=== PATIENT | female | born 1970 | race Caucasian/White ===

== ENCOUNTER 2018-07-25 18:58 | Emergency (ER) | payer MEDICARE, MEDICAID, SELFPAY ==
[2018-07-25 18:58] VITALS: BP 117/76; PULSE 76; RESP 16; TEMP 36.9; O2SAT 99; BMI 26.7
--- NOTE | 2018-07-25 19:09 | ED.VISSUMM ---
- ER Visit Summary Date of Service: 07/25/18 Chief Complaint: Nausea, vomiting, abdominal pain History of Present Illness: The patient is a 47 F presents to the emergency department nausea, vomiting, abdominal pain. The patient states she has been having symptoms intermittently for 2 years. Her primary care is referred her to a GI specialist, but she states she is never followed up. She states that there are different foods that seem to exacerbate it. She states that she ate yesterday, and the pain came on. She describes a sharp, stabbing sensation in her midepigastric area to her back. She also had a few bouts of vomiting. She denies any fevers or chills. She had no further diarrhea. She states she tried 1 of her puke pills but it did not help. She has no history of abdominal surgery. Physical Examination: Vital signs reviewed General: Well-nourished, well-developed Head: Normocephalic, atraumatic Eyes: Pupils equal and reactive, extraocular muscles intact Neck, supple, no lymphadenopathy Heart: Regular rate and rhythm Respiratory: No distress, clear bilaterally Abdomen: Soft, nontender, nondistended, no peritoneal signs Back: Nontender Extremities: Nontender, no edema, no cords Skin: Normal color no rash Neuro: Alert and oriented, no focal or lateralizing deficits Test Results: [] Emergency Department Course and Treatment: The patient presents with nausea and vomiting. She has very minimal abdominal tenderness in the midepigastric area, but no rebound or guarding. IV was established. She was given fluids and Phenergan with improvement of her symptoms. Her labs are unremarkable. Her lipase is normal. On reevaluation she is resting comfortably. At this time, I do feel that she is safe for outpatient follow-up. The patient be discharged home. Treatment Plan: [] Disposition: Discharge Impression: Nausea vomiting This note was generated with [employer] dictation software. It may contain incorrect words, spelling, and punctuation that were not noted in review of the chart prior to signing ED Disposition - Plan for ED Patient: Disposition: Home or Assisted Living Chief Complaint: Nausea/Vomiting/Diarrhea Instructions: ED Gastroenteritis Vs Food Poison Prescriptions: Ondansetron [Zofran Odt] 4 mg PO Q8H PRN PRN #10 tab PRN Reason: Nausea Famotidine [Pepcid] 20 mg PO BID #28 tab Referrals: Sheets,Rosanna, DO [Primary Care Provider] -
[2018-07-25] MEDS: proMETHazine 25 MG/ML Syringe 12.5 MG IV (19:41)
[2018-07-25] MEDS: 0.9% Normal Saline 1,000 ML 1000 ML IV (19:41)
[2018-07-25 20:12] LABS: Absolute Lymphocyte Count 2.19 X10^3/ul (0.83-4.51); Absolute Neutrophil Count 3.3 X10^3/uL (2.0-7.7); Basophil# 0.02 X10^3/uL; Basophil% 0.3 % (0-1); Eosinophil# 0.34 X10^3/uL; Eosinophils% 5.6 % (0-5); Hematocrit 40.4 % (37-47); Hemoglobin 12.8 g/dl (12.0-15.0); Lymphocyte # 2.19 X10^3/ul (4.0); Lymphocyte % 35.8 % (19-41); Mean Corp Hgb Conc 31.7 g/gl (32-36); Mean Corpuscular Hgb 27.5 pg (27.0-32.0); Mean Corpuscular Volume 86.9 fL (81-99); Mean Platelet Vol. 10.5 fl (6.2-12.0); Monocyte# 0.26 X10^3/uL; Monocyte% 4.2 % (0-10); Neutrophil % 53.9 % (47-70); Platelet Count 211 K/mm3 (150-450); RBC Distribution Width CV 15.5 % (11.6-14.6); RBC Distribution Width SD 49.1 fl (35.1-43.9); Red Blood Count 4.65 M/mm3 (4.2-5.4); White Blood Count 6.1 K/mm3 (4.4-11.0)
[2018-07-25 20:13] LABS: POSITIVE COUNT NO; POSITIVE DIFFERENTIAL NO; POSITIVE MORPHOLOGY NO
[2018-07-25 20:18] LABS: ALB/GLOB Ratio 0.9 RATIO (0.9-2.4); AST(SGOT) 14 U/L (15-37); Alanine Aminotransfer ALT/SGPT 19 U/L (13-56); Albumin, Serum 3.2 g/dL (3.2-5.0); Alkaline Phosphatase 69 U/L (45-117); Anion Gap 4 (5-15); BUN 9 mg/dL (7-18); BUN/Creat Ratio 12.9 RATIO (10-20); Calcium,Total 8.4 mg/dL (8.5-10.1); Chloride 110 mmol/L (98-107); EST Glomerular Filtration Rate 96 mL/min (>60); Est Glom Filt Rate - Afr Amer 116 mL/min (>60); Estimated Creatinine Clearance 91.32 ml/min; Globulin 3.5 g/dL (2.2-4.2); Glucose 90 mg/dL (74-106); Lipase 138 U/L (73-393); Potassium 3.5 mmol/L (3.5-5.1); Protein, Total 6.7 g/dL (6.4-8.2); Sodium Level 144 mmol/L (136-145)
== END 2018-07-25 20:44 | disposition home or self-care (01) ==
LOC: ED 19:19
PROVIDERS: Emergency Provider Emergency Medicine; Family Provider Family Medicine; PCP Family Medicine
DX: R11.2 Nausea with vomiting, unspecified (principal); R10.13 Epigastric pain; R19.7 Diarrhea, unspecified
CPT/HCPCS: 80053; 83690; 85025; 96361; 96374; 99285; J7030; A4216

== ENCOUNTER → 2019-04-15 | Outpatient (CLI) | payer MEDICARE, MEDICAID, SELFPAY ==
--- NOTE | 2019-04-15 10:18 | RAD_ITS ---
STUDY: X-RAY - LEFT KNEE REASON FOR EXAM: Female, 48 years old. Left knee pain TECHNIQUE: 3 view(s) of the knee. COMPARISON: None. FINDINGS: There is no evidence of fracture or dislocation. There are mild tricompartmental degenerative changes which are most pronounced in the medial compartment. There are no radiodense foreign bodies. RAD/Knee 1 or 2 Views IMPRESSION: No fracture or dislocation. Mild degenerative changes which are most pronounced medially. Electronically Signed: Silvio Osorio, at 17:04 EDT Tel , Service support ,
== END | disposition home or self-care (01) ==
PROVIDERS: Family Provider Family Medicine; PCP Family Medicine; Referring Provider Anesthesiology Pain Medicine; Visit Provider Anesthesiology Pain Medicine
DX: M25.562 Pain in left knee (principal)
CPT/HCPCS: 73560

== ENCOUNTER 2019-04-17 11:27 | Day surgery (SDC) | payer MEDICARE, MEDICAID, SELFPAY ==
--- NOTE | 2019-04-07 13:39 | HP.PCM_ITS ---
History and Physical Date of Admission: 04/17/19 Pre-Op History and Physical ? HPI: The patient is a 48 year old female presenting for pre-operative visit. She is scheduled for?laparoscopic bilateral salpingectomy, for?sterilization on?April 17, 2019. ??Procedure discussed along with risks, benefits and complications. ?Other alternatives discussed for management. Consent form signed??Yes.? PAST?MEDICAL?HISTORY PAST MEDICAL HISTORY Diagnosis Date ? Acquired hypothyroidism ? ? - currently untreated due to patient running out of meds, restart levothyroxine and recheck TSH in 3 months ? Anemia ? ? Anxiety state ? ? ?- continue buspar ? Asthma ? ? Cardiac disorder ? ? Heart spasms treated with NTG sublingual ? Depressive disorder ? ? - Rx for cymbalta ? Diverticular disease of colon ? ? Drug abuse (HCC) ? ? Hx of Heroine Use ? Fibromyalgia ? ? Fracture ? ? rt foot ? Heavy cigarette smoker ? ? - smokes 1/2 PPD, pt encouraged to quit ? Hepatitis B infection ? ? Hypertension 01/17/2012 ? Hypertensive disorder ? ? ?- Lisinopril ? Insomnia ? ? Known medical problems ? ? Solitary nodule of lung- [address] for 5 mm nodule seen on CT in 01/20 ordered, if wnl, repeat in 1 year in this high-risk pt ? Lupus (HCC) ? ? Mixed collagen vascular disease (HCC) ? ? ?- continue to see Dr. Dior, occupational therapy technician, for this condition ? Obesity ? ? - watch diet for excess calories, increase physical activity ? Opioid dependence (HCC) ? ? - under the care of psychiatry ? Slipped intervertebral disc ? ? 3 disc's in Neck ? Spinal stenosis ? ? Neck and Lower Back ? Steatosis of liver ? ? - see on CT of chest done in 02/19, check FLP and LFT, consider starting statin medication? ? ? PAST?SURGICAL?HISTORY PAST SURGICAL HISTORY Procedure Laterality Date ? CARDIAC CATH ? ? ? LOW BACK DISK SURGERY ? 2006 ? PAST SURGICAL HISTORY OF ? ? ? Spurs removed from lower back ? PAST SURGICAL HISTORY OF ? 09/2015 ? cervical disc surgery ? PAST SURGICAL HISTORY OF ? 10/2014 ? lung biopsy (spot on lung) ? REDUCTION OF LARGE BREAST ? ? ? Breast reduction ? ? CURRENT?MEDICATIONS Current Outpatient Medications Medication Sig Dispense Refill ? IBUPROFEN ORAL Take by mouth. ? ? ? Desogestrel-Ethinyl Estradiol (APRI) 0.15-0.03 mg per tablet Take 1 tablet by mouth once daily. (Patient not taking: Reported on 04/07/2019 ) 1 Package 2 ? venlafaxine ER (EFFEXOR XR) 150 mg 24 hr capsule Take 1 capsule by mouth daily with breakfast. (Patient not taking: Reported on 04/07/2019 ) 30 capsule 5 ? promethazine (PHENERGAN) 25 mg tablet Take 1 tablet by mouth every 6 hours as needed. (Patient not taking: Reported on 04/07/2019 ) 30 tablet 0 ? No current facility-administered medications for this visit.? ? ALLERGIES:?Codeine; Lyrica [Pregabalin]; Morphine; Naproxen; Vicodin [Hydrocodone-Acetaminophen] ? PERSONAL HISTORY:? SOCIAL?HISTORY Social History ??Socioeconomic History ?Marital status: Legally ?Spouse name: Marlon ?Number of children: 2 ?Years of education: 12 ?Highest education level: Not on file ??Social Needs ?Financial resource strain: Not on file ?Food insecurity - worry: Not on file ?Food insecurity - inability: Not on file ?Transportation needs - medical: Not on file ?Transportation needs - non-medical: Not on file ??Occupational History ?Occupation: Disabled ??Tobacco Use ?Smoking status: Current Every Day Smoker ?Packs/day: 0.50 ?Years: 33.00 ?Pack years: 16.5 ?Types: Cigarettes ?Start date: 10/08/1980 ?Smokeless tobacco: Never Used ?Tobacco comment: has been trying to cut back ??Substance and Sexual Activity ?Alcohol use: Yes ?Comment: DRANK ONE WEEK AGO/ HAD BEEN SOBER SINCE 12/2014 ?Drug use: Yes ?Frequency: 1.0 times per week ?Types: Marijuana ?Comment: history of marijuana, opiod and heroin use ?Sexual activity: Yes ?Partners: Male ? control/protection: Vasectomy ??Other Topics ?Concerns: ? Service: Not Asked ?Blood Transfusions: Not Asked ?Caffeine Concern: No ?Uses caffeine; Amount: minimal (equiv to <?1 8oz coffee/day) ?Occupational Exposure: Not Asked ?Hobby Hazards: Not Asked ?Sleep Concern: Not Asked ?Stress Concern: Not Asked ?Weight Concern: Not Asked ?Special Diet: Not Asked ?Back Care: Not Asked ?Exercise: Not Asked ?Bike Helmet: Not Asked ?Seat Belt: Not Asked ?Self-Exams: Not Asked ??Social History Narrative ?smoked 1/2 ppd since age 15 ? FAMILY HISTORY:? FAMILY?HISTORY FAMILY HISTORY Problem Relation Age of Onset ? Heart Father ?CHF ? Diabetes Father ?TYPE II ? Hypertension Father ? ? Stroke Father ? ? Diabetes Maternal Grandmother ?TYPE I ? Stroke Maternal Grandmother ? ? other (HTN) Maternal Grandmother ? ? Stroke Maternal Grandfather ? ? Colon Cancer Maternal Aunt ? ? Diabetes Other ?TYPE II ??COUSIN ? Colon Cancer Maternal Aunt ? ? other (Colorectal cancer) Maternal Aunt ? ? other (Diabetes mellitus) Maternal Aunt ? ? other (Heart disease) Maternal Aunt ? ? other (Lung cancer) Maternal Aunt ? ? REVIEW OF SYMPTOMS: GENERAL: denies fevers or chills ENDOCRINOLOGY: has not been on steroids Cardiology : denies palpitations or chest pain Respiratory: denies SOB or cough Hematology: denies history of prolonged bleeding or easy bruising or VTE Allergy: Denies history of personal or family history of allergy to anesthesia ? ? PHYSICAL EXAMINATION: ? VITALS:?There were no vitals taken for this visit. ? GENERAL:??The patient is well nourished, well hydrated in no acute distress. ?, The patient is oriented to time, place, and person. NECK:?Supple. No lynphadenopathy, normal thyroid, no thyromegaly. LUNGS:?Clear to auscultation bilaterally. no wheezes, rhonchi or rales HEART:?Regular rate and rhythm, Normal heart sounds and No murmurs or gallops ? IMPRESSION:?sterilization request ? PLAN:???The risks/benefits/alternatives and personal involved for the planned?laparoscopic bilateral salpingectomy?were reviewed with the patient. Her questions were answered to her satisfaction and she desires to proceed. ?Consent was signed. ?I reviewed with her postop instructions and expectations. ?Risks, benefits and alternatives to sterilization have been discussed with the patient. ?She declines reversible options including LARC. ?She understands sterilization is permanent, irreversible, risks of failure, regret and ectopic. ?In addition she understands there are surgical risks as well. ?Her questions were answered to her satisfaction and consent was signed ? ? I have reviewed and updated past medical and surgical history, medications and allergies? This history and physical was completed in my office on 04/07/19 Diane Whitley M.D.
--- NOTE | 2019-04-15 10:47 | EKGRS_ITS ---
Test Reason : PRE OP Blood Pressure : / mmHG Vent. Rate : 063 BPM Atrial Rate : 063 BPM P-R Int : 142 ms QRS Dur : 090 ms QT Int : 440 ms P-R-T Axes : 063 058 038 degrees QTc Int : 450 ms Normal sinus rhythm Normal ECG Confirmed by OMER MCGEE, NATALY ([id number]), publishing editor DEBRA BROWER ([id number]) on 04/17/2019 11:57:45 AM Referred By: Diane Whitley Confirmed By:NATALY TELLO MD
[2019-04-15 11:26] LABS: Hematocrit 42.4 % (37-47); Hemoglobin 13.5 g/dl (12.0-15.0); Mean Corp Hgb Conc 31.8 g/gl (32-36); Mean Corpuscular Volume 91.2 fL (81-99); Mean Platelet Vol. 10.3 fl (6.2-12.0); Platelet Count 221 K/mm3 (150-450); RBC Distribution Width SD 49.2 fl (35.1-43.9); Red Blood Count 4.65 M/mm3 (4.2-5.4); White Blood Count 6.7 K/mm3 (4.4-11.0)
[2019-04-15 11:43] LABS: Scan Indicated on CBC? Y/N NO
[2019-04-15 13:22] LABS: Internal QC Validated? YES +Cl - CLEAR BKGD; Pregnancy, Urine Negative Negative
[2019-04-17 11:53] LABS: Internal QC Validated? YES +Cl - CLEAR BKGD; Pregnancy, Urine Negative Negative
[2019-04-17 12:12] VITALS: BP 119/83; PULSE 71; RESP 14; TEMP 36.8; O2SAT 99; BMI 26.4
[2019-04-17] MEDS: Acetaminophen 500 MG Tablet 1000 MG PO (12:15)
[2019-04-17] MEDS: Ketorolac 30 MG/ML Syringe IV (12:15)
--- NOTE | 2019-04-17 13:10 | FALS_PTH ---
PATIENT: JOHANNA RUIZ LOC: [facility] [place] U#:[id number] AGE/SX: 48/F ROOM: RE04/17/[address]: Dr. Diane Whitley MD : 1970 BED: DIS: 04/17/2019 SPEC #: [id number] RECD: 04/17/19 16:46 STATUS: YOSELIN LARA #: [id number] YENI: 04/17/19 13:[address]: Diane Whitley DEPT: SURGICAL PATHOLOGY RECD BY: Vangie Lehman ENTERED: 04/18/19 11:32 SP TYPE: FALL TUBES OTHR DR: Dr. Rosanna Alfred, DO Tissues: Fallopian tube Procedures: Surgery Specimen Level II HEADER OPERATION: Laparoscopic, salpingectomy PRE-OP DIAGNOSIS: Request sterilization TISSUE SUBMITTED: Bilateral fallopian tubes MICROSCOPIC DIAGNOSIS Bilateral fallopian tubes, salpingectomy: Bilateral fallopian tubes including fimbrial ends, no pathologic diagnosis. SJ:amanda 04/21/19 MICROSCOPIC DESCRIPTION Slides are reviewed. GROSS DESCRIPTION Received is one container labeled with the patient's name and designated bilateral fallopian tubes. The specimen consists of bilateral fallopian tubes including fimbrial ends each measuring 6 cm in length and 0.7 cm in diameter. Sections do not reveal any mass lesion. The fallopian tubes are not identified as right or left. Sections reveal unremarkable cut surfaces. Toys Inspector sections are submitted in two cassettes with each cassette containing one fallopian tube. / ROSALIND:amanda 04/18/19 TC:4 CPT: 07225 x2
--- NOTE | 2019-04-17 14:08 | PCM.DC.TUB ---
Discharge Diet: No Restrictions - Increase fluid intake for the next 48 hours. Discharge Activity: Return to Normal Activity, May Drive - when you are no longer taking pain/narcotic meds., May Shower, May Take a Tub Bath - in 7 days Additional Activity Instructions:: Ambulate often the next week after surgery. Nothing in the vagina for 5 days. Call your doctor if your incision/area has: Continuous Slow Oozing, Sudden Increased Bleeding, Increased Pain/ Swelling, Increased Redness, Foul Smelling Discharge Call your doctor if you observe: Fever of 101 or Higher, - - use heat or ice packs as needed. Alternate your ibuprofen with acetaminophen 1000 mg three times a day as needed for pain Cleanse incision/area with: Soap & Water, - - Your incisions have skin glue, it can get wet. Leave it on for at least 10 days Allergies/Adverse Reactions: Allergies hydrocodone bitartrate [From Vicodin] Allergy (Verified 04/15/19 10:30) Hives morphine Allergy (Verified 04/15/19 10:30) Itching naproxen Adverse Reaction (Verified 04/15/19 10:30) Other heart palpitations pregabalin [From Lyrica] Adverse Reaction (Verified 04/15/19 10:30) Other heart palpitations Medications to take at Discharge Ibuprofen [Motrin] 600 mg PO Q6H PRN #60 tablet 12/22/16 Multivitamin [Daily Multiple Vitamin] 1 ea PO DAILY 04/15/19 Ibuprofen [Motrin] 600 mg PO Q6H PRN #60 tab 04/17/19 The following prescriptions were given: Ibuprofen [Motrin] 600 mg PO Q6H PRN #60 tab PRN Reason: Pain Transmission Status: Pending to [facility] Primary Care Physician: Rosanna Vann DO [Primary Care Provider] - Test Results: Test results from this visit will be discussed in further detail at your follow-up appointment, if applicable. Please Follow Up With: Diane Whitley MD - [phone] When: in 2-4 weeks or as needed
--- NOTE | 2019-04-17 14:27 | PCM.OPRPT ---
Report of Operation Date of Procedure: 04/17/19 Pre-Operative Diagnosis: sterilization request Post-Operative Diagnosis: same Surgery/Procedure Performed:: Laparoscopic bilateral salpingectomy Description of Surgical Findings:: Normal somewhat boggy uterus, normal tubes and ovaries bilaterally. Normal-appearing vagina and cervix. fuel injection servicer: Eve Ferrer Type of Anesthesia:: General Anesthesiologist: Amita Mckeon Special Medications: None Specimen's removed: Bilateral fallopian tubes Drains: None Estimated Blood Loss (mL): 5 Fluids Replaced: 400 Description of Procedure: The patient was taken to the operating room where she was prepped and draped in the dorsolithotomy position. A weighted speculum was placed in the vagina and the anterior lip of the cervix was grasped with a tenaculum. The con cannula uterine manipulator was placed and the remainder of the instruments were removed from the vagina. Attention was turned to the abdomen. All port sites were infiltrated with 0.5% Marcaine before skin incisions were made. A 5 mm [intraumbilical] incision was made. The anterior abdominal wall was tented up with 2 towel clamps while a 5 mm blade less trocar and sleeve were [directly inserted]. Intraperitoneal placement was confirmed with the laparoscope. The pneumoperitoneum was created and the underlying abdominal contents were intact. The patient was placed in Trendelenburg. Right and left lower quadrant ports were placed under direct visualization lateral to the inferior epigastric vessels. The bowel was swept away and the above findings were noted. The LigaSure device was used to clamp seal and transect the antimesenteric portions of the right tube to the cornual insertion of the uterus. The tube was amputated from the uterus and the pedicles were all confirmed to be hemostatic. The same procedure was performed on the contralateral side. The specimens were brought out through a 5 mm port. The pedicles were again examined and found to be hemostatic. The lateral ports were removed under direct visualization and no active bleeding was noted. The pneumoperitoneum was released. The skin incisions were closed with Monocryl suture in a subcuticular fashion and skin glue by the SENIOR APPLICATION PROGRAMMER with me present in the operating room. The vaginal instruments were removed and the vaginal sweep was completed by me. The procedure was performed by me with assistance other than as dictated above. All sponge and needle counts were correct and the patient was taken to the recovery room in stable condition. Grafts/Implants Used: none - Complications none - Admit VTE Documentation VTE Present on Admission: No VTE Mechan Device Prophylaxis: SCD's VTE Pharm Prophylaxis ordered?: Yes Reason prophylaxis not ordered:: Treatment Not Indicated
[2019-04-17] MEDS: Bupivacaine 0.5% PF 10 ML VIAL (14:30)
[2019-04-17 14:41] VITALS: BP 103/69; BP 119/83; PULSE 71; RESP 18; TEMP 36.1; O2SAT 98
[2019-04-17 14:45] VITALS: BP 106/66; BP 119/83; PULSE 69; RESP 18; O2SAT 98
[2019-04-17 15:00] VITALS: BP 119/83; BP 97/66; PULSE 53; RESP 18; O2SAT 100
[2019-04-17 15:15] VITALS: BP 107/65; BP 119/83; PULSE 69; RESP 18; TEMP 36.4; O2SAT 100
[2019-04-17] MEDS: traMADol 50 MG Tablet PO (15:47)
[2019-04-17 16:09] VITALS: BP 102/60; BP 119/83; PULSE 72; RESP 16; TEMP 36.8; O2SAT 100
== END 2019-04-17 16:10 | disposition home or self-care (01) ==
LOC: SDC 11:28 → AC 11:28
PROVIDERS: Anesthesiology; Family Provider Family Medicine; PCP Family Medicine; Referring Provider Obstetrics & Gynecology; Visit Provider Obstetrics & Gynecology
PROC: (CPT 58661; principal; 2019-04-17 12:55)
DX: Z30.2 Encounter for sterilization (principal); E03.9 Hypothyroidism, unspecified; F41.9 Anxiety disorder, unspecified; F32.9 Major depressive disorder, single episode, unspecified; M79.7 Fibromyalgia; F17.210 Nicotine dependence, cigarettes, uncomplicated; I10 Essential (primary) hypertension; Z86.19 Personal history of other infectious and parasitic diseases; Z79.899 Other long term (current) drug therapy; M32.9 Systemic lupus erythematosus, unspecified; R91.1 Solitary pulmonary nodule; F11.20 Opioid dependence, uncomplicated
CPT/HCPCS: 00840; 58661; 36415; 81025; 85027; 88302; 93005; J7120; J2405

== ENCOUNTER 2019-05-06 13:46 | Emergency (ER) | payer MEDICARE, MEDICAID, SELFPAY ==
[2019-05-06 13:46] VITALS: BP 124/81; PULSE 78; RESP 16; TEMP 36.8; O2SAT 99; BMI 27.2
[2019-05-06 15:58] LABS: Differential Comment SCANNED; Platelet Estimate ADEQUATE (ADEQ)
[2019-05-06 15:59] LABS: Absolute Lymphocyte Count 2.39 X10^3/uL (0.83-4.51); Absolute Neutrophil Count 3.8 X10^3/uL (2.0-7.7); Basophil# 0.04 X10^3/uL; Basophil% 0.6 % (0-1); Eosinophil# 0.18 X10^3/uL; Eosinophils% 2.7 % (0-5); Hemoglobin 14.3 g/dL (12.0-15.0); Lymphocyte # 2.39 X10^3/ul (4.0); Lymphocyte % 35.3 % (19-41); Mean Corp Hgb Conc 32.5 g/dL (32-36); Mean Corpuscular Hgb 30.5 pg (27.0-32.0); Mean Corpuscular Volume 93.8 fL (81-99); Mean Platelet Vol. 10.8 fl (6.2-12.0); Monocyte% 4.4 % (0-10); NRBC Flagged by Analyzer 0 % (0-5); Neutrophil # 3.84 X10^3/uL (2.7-7.7); Neutrophil % 56.6 % (47-70); POSITIVE COUNT YES; Platelet Count 129 K/mm3 (150-450); RBC Distribution Width CV 15.4 % (11.6-14.6); RBC Distribution Width SD 52.9 fl (35.1-43.9); Red Blood Count 4.69 M/mm3 (4.2-5.4); White Blood Count 6.8 K/mm3 (4.4-11.0)
[2019-05-06 16:00] LABS: Differential Indicated SCAN CRITERIA MET
--- NOTE | 2019-05-06 16:32 | ED.DCSUM_ITS ---
- ER Visit Summary Date of Service: 05/06/19 Chief Complaint: [Right shoulder and wrist pain] History of Present Illness: The patient is a 48 F [resents to the emergency department with pain in the right shoulder and right wrist had for about 2 days now. Patient states that she was working in trimming some branches over the last several days. Patient complains of pain in the right shoulder with movement and at times radiates towards her neck. Patient also has some pain in her right wrist especially when she tries to extend or hyperextend her thumb. Patient denies any direct injury or trauma. She does have history of mixed connective tissue disorder. Patient is requesting to have a CBC checked as typically when her white blood cell count is elevated she states that she has to be on steroids. Denies any chest pain or shortness of breath. She is had no fevers.] Physical Examination: [HEENT-PERRLA, EOMI. Cranial nerves II through XII grossly intact. TMs clear. Mucous membranes moist. No adenopathy. Cardiovascular-regular rate and rhythm without murmur or ectopy Lungs-clear to auscultation, chest wall stable without crepitus or subcu emphysema Abdomen-normoactive bowel sounds, soft, nontender, no rebound or rigidity, no peritoneal signs. Extremities-intact ?4, normal range of motion, normal pulses, atraumatic. Right shoulder-no soft tissue swelling noted. There is no erythema or edema. She has normal range of motion. No deformity. He has tenderness over the anterior glenohumeral joint as well as the bicep tendon. Wrist-patient has pain with flexion extension of the wrist mostly over the radial aspect. No erythema or warmth noted. She is neurovascular intact distally. Negative Michael test.] Test Results: [CBC with differential obtained was normal.] Emergency Department Course and Treatment: [He was given a sling and a wrist splint.] Treatment Plan: [Advised to use Percocet for severe pain should she needed. Patient will be referred to orthopedics for follow-up.] Disposition: [Discharged home in stable condition.] Impression: [Right shoulder sprain Right wrist sprain] This note was generated with [employer] software. It may contain incorrect words, spelling, and punctuation that were not noted in review of the chart prior to signing ED Disposition - Plan for ED Patient: Referrals: Rosanna Vann DO [Primary Care Provider] -
--- NOTE | 2019-05-06 16:35 | ED.DEP ---
ED Disposition - Plan for ED Patient: Instructions: Shoulder Sprain, Wrist Sprain Prescriptions: Oxycodone HCl/Acetaminophen [Percocet 5/325] 1 tab PO Q6H PRN PRN 3 Days #12 tab PRN Reason: Pain Prescription Printed Referrals: Rosanna Vann DO [Primary Care Provider] - Jerome Hernandez DO [STAFF PHYSICIAN] - 5-7 Days
[2019-05-06 17:18] VITALS: BP 119/83; PULSE 87; RESP 14; O2SAT 97
== END 2019-05-06 17:19 | disposition home or self-care (01) ==
PROVIDERS: Emergency Provider Emergency Medicine; Family Provider Family Medicine; PCP Family Medicine
DX: S43.401A Unspecified sprain of right shoulder joint, initial encounter (principal); S63.501A Unspecified sprain of right wrist, initial encounter; X58.XXXA Exposure to other specified factors, initial encounter; Y93.9 Activity, unspecified; Y92.9 Unspecified place or not applicable; M35.9 Systemic involvement of connective tissue, unspecified; Z72.0 Tobacco use
CPT/HCPCS: 85025; 99283

== ENCOUNTER → 2019-05-16 | Outpatient (CLI) | payer MEDICARE, MEDICAID, SELFPAY ==
[2019-05-06 13:46] VITALS: BMI 27.2
--- NOTE | 2019-05-16 10:27 | RAD_ITS ---
STUDY: X-RAY - RIGHT HAND REASON FOR EXAM: Female, 48 years old. Pain at the base of the thumb. TECHNIQUE: 3 view(s) of the hand. COMPARISON: None. FINDINGS: Normal radiocarpal articulation. Normal distal radioulnar joint. Normal visualized carpal bones. Normal carpal articulations Normal carpometacarpal articulation of the thumb. Normal second through fifth carpometacarpal joints. Normal metacarpi. Normal metacarpophalangeal joint of the thumb. Normal interphalangeal joint of the thumb. Normal proximal and distal phalanges of the thumb. Normal metacarpophalangeal joints of the second through fifth fingers. Normal proximal and distal interphalangeal joints of the second through fifth fingers. Normal phalanges of the second through fifth fingers. The soft tissue structures are unremarkable. RAD/Hand Min 3 Views IMPRESSION: Normal x-ray examination of the hand. Negative for fracture, dislocation, osteolytic or blastic bone lesion. Minimal diffuse degenerative joint narrowing appropriate for age without other major arthritic or inflammatory joint changes. Electronically Signed: Qing Snider MD at 19:16 EDT , Service support ,
== END | disposition home or self-care (01) ==
LOC: HPRAD 10:27
PROVIDERS: Family Provider Family Medicine; PCP Family Medicine; Referring Provider Physician Assistant; Visit Provider Physician Assistant
DX: M79.644 Pain in right finger(s) (principal)
CPT/HCPCS: 73130

== ENCOUNTER 2020-05-29 18:34 | Emergency (ER) | payer MEDICARE, MEDICAID, SELFPAY ==
[2019-05-16 11:03] VITALS: BMI 27.2
[2020-05-29 18:36] VITALS: BP 126/77; PULSE 88; RESP 16; TEMP 36.4; O2SAT 99; BMI 26.6
--- NOTE | 2020-05-29 18:51 | ED.VIS.GEN ---
History of Present Illness Chief Complaint: General Illness Detail of Chief Complaint: Flare of mixed connective tissue disorder Informant: Patient Onset: Month(s) Context: Gradual Onset Current Severity: Moderate Maximum Severity: Moderate Narrative: Patient presents stating that she is just not feeling good for the past couple of months. She has mixed connective tissue disorder and believes she is having a flare. She states that all of her joints hurt. She also feels intermittently disoriented and confused which happens when she gets a flare. She states she was hoping just to have her levels checked. She states typically they check her white blood cells because she tends to make too many. She has not seen her specialist in the last 2 years. She is been off of her medication for the past 3 years. She does state that when she gets a flare they usually give her an IV dose of steroid and then a prednisone taper. - Past Medical History (1) Hypertension Status: Chronic (2) Hepatitis B Status: Chronic (3) COPD (chronic obstructive pulmonary disease) Status: Chronic (4) Connective tissue disorder Status: Chronic Past Medical History - Allergies and Home Meds Allergies/Adverse Reactions: Allergies gabapentin Allergy (Verified 05/29/20 18:35) Itching hydrocodone bitartrate [From Vicodin] Allergy (Verified 05/29/20 18:35) Hives morphine Allergy (Verified 05/29/20 18:35) Itching naproxen Adverse Reaction (Verified 05/29/20 18:35) Other heart palpitations pregabalin [From Lyrica] Adverse Reaction (Verified 05/29/20 18:35) Other heart palpitations Primary Care Physician: Rosanna Alfred DO [Primary Care Provider] - Prior records reviewed: Yes Lives: Homeless Smoking Status: Current every day smoker Review of Systems General: Denies: Chills, Fever Eyes: Denies: Visual changes - bilaterally ENT: Denies: Bilateral ear pain Cardiovascular: Denies: Chest pain Respiratory: Denies: Dyspnea, Cough Musculoskeletal: Reports: Extremity Pain. Denies: Neck pain, Back pain Skin: Denies: Rash Neurological: Denies: Headache Hematologic: Denies: Easy bruising, Easy bleeding Allergy: Denies: Uticaria Physical Exam Vital Signs/Narrative: Vital Signs Temp Pulse Resp BP Pulse Ox 05/29/20 18:36 97.5 F L 88 16 126/77 H 99 Inital Vital Signs reviewed: Yes General: Well nourished, Well developed Head: Normocephalic ENT: Moist mucous membranes Neck: Supple Cardiovascular: Regular rate, Regular rhythm Respiratory: No distress, CTA bilaterally Abdomen: Soft, Nontender Extremities: Nontender - No focal tenderness of the joints. No erythema or edema. Skin: Normal color Neurological: Alert, Oriented x3, Normal Strength, Normal Sensation Psychological: Normal affect Diagnostic/Tx/Re-eval Laboratory Results 05/29/20 05/29/20 19:15 19:15 WBC 6.4 RBC 4.49 Hgb 13.5 Hct 41.3 MCV 92.0 MCH 30.1 MCHC 32.7 RDW Std Deviation 45.0 H RDW Coeff of Zuly 13.3 Plt Count 211 MPV 10.0 Immature Gran % (Auto) 0.200 Neut % (Auto) 64.4 Lymph % (Auto) 28.1 Mckenzie % (Auto) 4.2 Eos % (Auto) 2.3 Baso % (Auto) 0.8 Absolute Neuts (auto) 4.1 Absolute Lymphs (auto) 1.81 Nucleated RBC % 0 ESR 7 Sodium 141 Potassium 4.4 Chloride 114 H Carbon Dioxide 24.0 Anion Gap 3 L BUN 11 Creatinine 0.65 Estim Creat Clear Calc 96.28 Est GFR (MDRD) Af Amer 125 Est GFR (MDRD) Non-Af 104 BUN/Creatinine Ratio 16.9 Glucose 96 Calcium 8.1 L Total Bilirubin 0.50 Direct Bilirubin 0.11 AST 25 ALT 18 Alkaline Phosphatase 67 C-React Prot Ext Range < 2.90 Total Protein 6.4 Albumin 3.0 L Globulin 3.4 - Medical Decision Making Patient's lab tests are discussed with her. At this time I see no evidence of acute inflammation or infection. She is advised to follow-up with her specialist in [place] whom she is seen in the past. Patient was seen by social work while here as well. ED Disposition - Plan for ED Patient: Disposition: Home or Assisted Living Diagnosis: Joint pain Instructions: ED JOINT PAIN Referrals: Rosanna Alfred DO [Primary Care Provider] - 1-2 Weeks
--- NOTE | 2020-05-29 19:10 | CM.ED ---
SOCIAL WORK Informant: Dr. John Reason for Consult: Resources Met with patient in room. Introduced role and reason for referral. Patient states was for 25 years and got a year ago. Patient states has been homeless for one year. Patient reports is working with [facility] and [facility]. Patient states has to drop off certificates for herself and son to [facility], but has been staying with her cousin in [place] for the last two weeks. Patient states plans to stay with her mother pat. Encouraged patient to follow up with [facility] and [facility] on Sunday. Informed patient this worker will follow up with [facility] on Sunday as well to update on recent ER visit. Patient requests this worker speak with Dannielle at [facility]. Patient with history of anxiety and depression and states does not take medication. Patient with history of substance abuse, heroin and fentanyl and reports has been off substances for 3.[address] John on the above. Plan: Patient to stay with mother and continue to work towards obtaining housing with assistance from [employer]. Angel King, [place], EMERGENCY PREPAREDNESS COORDINATOR
[2020-05-29 19:37] LABS: Absolute Lymphocyte Count 1.81 X10^3/uL (0.83-4.51); Absolute Neutrophil Count 4.1 X10^3/uL (2.0-7.7); Basophil# 0.05 X10^3/uL; Basophil% 0.8 % (0-1); Eosinophil# 0.15 X10^3/uL; Eosinophils% 2.3 % (0-5); Hematocrit 41.3 % (37-47); Hemoglobin 13.5 g/dL (12.0-15.0); Lymphocyte # 1.81 X10^3/ul (4.0); Lymphocyte % 28.1 % (19-41); Mean Corp Hgb Conc 32.7 g/dL (32-36); Mean Corpuscular Hgb 30.1 pg (27.0-32.0); Monocyte# 0.27 X10^3/uL; Monocyte% 4.2 % (0-10); NRBC Flagged by Analyzer 0 % (0-5); Neutrophil # 4.14 X10^3/uL (2.7-7.7); Neutrophil % 64.4 % (47-70); Platelet Count 211 K/mm3 (150-450); RBC Distribution Width CV 13.3 % (11.6-14.6); Red Blood Count 4.49 M/mm3 (4.2-5.4); White Blood Count 6.4 K/mm3 (4.4-11.0)
[2020-05-29 19:40] LABS: Erythrocyte Sedimentation Rate 7 mm/hr (0-20)
[2020-05-29 19:44] LABS: AST(SGOT) 25 U/L (15-37); Alanine Aminotransfer ALT/SGPT 18 U/L (13-56); Alkaline Phosphatase 67 U/L (45-117); Anion Gap 3 (5-15); BUN 11 mg/dL (7-18); BUN/Creat Ratio 16.9 RATIO (10-20); Bilirubin, Direct 0.11 mg/dL (0.00-0.30); CRP < 2.90 mg/L (0.0-3.0); Calcium,Total 8.1 mg/dL (8.5-10.1); Chloride 114 mmol/L (98-107); Creatinine, Serum 0.65 mg/dL (0.55-1.02); EST Glomerular Filtration Rate 104 mL/min (>60); Est Glom Filt Rate - Afr Amer 125 mL/min (>60); Estimated Creatinine Clearance 96.28 ml/min; Globulin 3.4 g/dL (2.2-4.2); Glucose 96 mg/dL (74-106); Potassium 4.4 mmol/L (3.5-5.1); Protein, Total 6.4 g/dL (6.4-8.2); Sodium Level 141 mmol/L (136-145)
== END 2020-05-29 21:14 | disposition home or self-care (01) ==
PROVIDERS: Emergency Provider Emergency Medicine; PCP Family Medicine
DX: L94.9 Localized connective tissue disorder, unspecified (principal); J44.9 Chronic obstructive pulmonary disease, unspecified; F17.200 Nicotine dependence, unspecified, uncomplicated
CPT/HCPCS: 80048; 80076; 85025; 85652; 86140; 99283; A4216

== ENCOUNTER 2021-02-14 08:11 | Emergency (ER) | payer MEDICARE, MEDICAID, SELFPAY ==
[2021-02-14 08:12] VITALS: BP 124/90; PULSE 104; RESP 16; TEMP 36.4; O2SAT 99; BMI 29.9
--- NOTE | 2021-02-14 08:24 | RAD_ITS ---
STUDY: X-RAY - LEFT FOOT CLINICAL: Female, 50 years old. Pain following injury. TECHNIQUE: 3 view(s) of the foot. COMPARISON: None. FINDINGS: There is a plantar calcaneal spur. Normal visualized subtalar, talonavicular, calcaneocuboid, tarsal and tarsometatarsal articulations. Normal metatarsi. There is degenerative arthrosis of the metatarsophalangeal joint of the hallux with a hallux valgus deformity. Normal tibial and fibular sesamoid bones. Normal interphalangeal joint of the great toe. Normal phalanges of the great toe. Normal second through fifth metatarsophalangeal joints. Normal interphalangeal joints and phalanges of the lesser toes. Soft tissue swelling. RAD/Foot min 3 Views IMPRESSION: Hallux valgus deformity with degenerative changes. Soft tissue swelling. Plantar spur. Electronically Signed: Dameon Arora MD at 8:38 EDT , Service support ,
--- NOTE | 2021-02-14 08:42 | ED.VIS.LOWEX ---
HPI History of Present Illness Chief Complaint: Lower Extremity Injury Informant: patient Narrative Narrative: Patient has left foot pain. Is been ongoing for the past week. She states she has a chronic deformity of the first and second toes which is causing her pain. She then hit her first MTP joint area last night on a piece of wood while walking. She states that her dog injured her third toe a week ago and she believes it could be broken. Her pain is worse with walking. She tried ibuprofen without any relief. She denies any history of any surgeries to the foot. The pain radiates up her leg but she denies any ankle injury or tibial injury. [facility] Medical History Depression Fibromyalgia Mixed connective tissue disease Home Medications multivitamin 1 ea PO DAILY 04/15/19 [History Last Taken Unknown] ibuprofen 600 mg PO Q6H PRN #60 tab 04/17/19 [Rx Last Taken Unknown] cannabidiol 1 cap PO DAILY PRN 05/29/20 [History Last Taken Unknown] mecobalamin (vitamin B12) 1,000 mcg PO DAILY 05/29/20 [History Last Taken Unknown] diflunisal 500 mg PO BID #20 tab 02/14/21 [Rx Last Taken Unknown] prednisone 10 mg PO DAILY PRN 02/14/21 [History Last Taken Unknown] Allergy/AdvReac Type Severity Reaction Status Date / Time gabapentin Allergy Itching Verified 02/14/21 08:12 hydrocodone bitartrate Allergy Hives Verified 02/14/21 08:12 [From Vicodin] morphine Allergy Itching Verified 02/14/21 08:12 naproxen AdvReac Other Verified 02/14/21 08:12 pregabalin [From Lyrica] AdvReac Other Verified 02/14/21 08:12 no significant family history Social History Smoking Status: Current every day smoker ROS ROS ED Constitutional Constitutional ED: Denies chills or fever(s) Eyes Eyes: Denies blurry vision, change in vision or diplopia ENT ENT ED: Denies ear pain, rhinorrhea or sore throat Cardiovascular Cardiovascular: Denies chest pain or palpitations Respiratory/Chest Respiratory/Chest: Denies cough, dyspnea or sputum Gastrointestinal Gastrointestinal: Denies abdominal pain, diarrhea, nausea or vomiting Genitourinary Genitourinary ED: Denies dysuria, hematuria or urinary frequency Musculoskeletal Musculoskeletal: Reports other Details: Left foot pain Integumentary Denies change in pigmentation or rash Neurologic Neurologic: Denies headache(s), numbness or weakness Psychiatric Psychiatric: Denies anxiety or depression Endocrine Endocrinology: Denies polydipsia or polyuria EXAM Physical Exam Const Vital Signs: 02/14/21 08:12 Temperature 97.5 F L Temperature Source Temporal Pulse Rate 104 H Respiratory Rate 16 Blood Pressure 124/90 H Blood Pressure Mean 101 Pulse Ox 99 Positive well nourished and well developed General Appearance ED: well developed HEENT normocephalic and atraumatic Eyes PERRL Neck full ROM Extremity Extremity Narrative: There is a chronic bunion deformity of the first MTP joint of the left foot. The second toe sits above the first toe. She has tenderness of the third toe on the left foot. No deformity of the second or third toes. Neuro oriented x3 and moves all extremities Sensorium / Orientation: alert Motor Exam: strength 5/5 throughout Psych mental status grossly normal Skin Lesions: no lesions Rashes: no rashes MDM MDM MDM Narrative Medical decision making narrative: Patient had x-rays of the left foot which shows a chronic hallux deformity. There are no acute fractures. She will be given a postop shoe for comfort. I will give her nonsteroidals for pain control. She will follow up with podiatry Radiography Diagnostic Testing: Radiology Impression Foot X-Ray 02/14/21 08:24 IMPRESSION: Hallux valgus deformity with degenerative changes. Soft tissue swelling. Plantar spur. Electronically Signed: Dameon Arora MD at 8:38 EDT , Service support , Discharge Plan Triage Chief Complaint: Lower Extremity Injury ED Provider: Ming García Dx/Rx/DC Orders Clinical Impression: Acute pain of left foot Instructions: ED Bunion Prescriptions: New diflunisal 500 mg tablet 500 mg PO BID Qty: 20 RF: 0 No Action multivitamin 1 EACH tablet 1 ea PO DAILY RF: 0 ibuprofen 600 MG tablet 600 mg PO Q6H PRN (Reason: Pain) Qty: 60 RF: 1 cannabidiol 100 MG/ML solution 1 cap PO DAILY PRN (Reason: Pain Or Fever) RF: 0 mecobalamin (vitamin B12) 1,000 MCG tablet,chewable 1,000 mcg PO DAILY RF: 0 prednisone 10 mg Tablet 10 mg PO DAILY PRN (Reason: Constipation) RF: 0 Primary Care Provider: Rosanna Alfred Referrals: Cooper Kearns DPM [STAFF PHYSICIAN] - Rosanna Alfred DO [Primary Care Provider] - Disposition Disposition: Home, self care
== END 2021-02-14 08:58 | disposition home or self-care (01) ==
LOC: ED 08:57
PROVIDERS: Emergency Provider Emergency Medicine; PCP Family Medicine
DX: M79.672 Pain in left foot (principal); M21.612 Bunion of left foot; W22.8XXA Striking against or struck by other objects, initial encounter; Y93.01 Activity, walking, marching and hiking; Y92.9 Unspecified place or not applicable; F32.9 Major depressive disorder, single episode, unspecified; M79.7 Fibromyalgia; M35.1 Other overlap syndromes; Z79.899 Other long term (current) drug therapy; F17.200 Nicotine dependence, unspecified, uncomplicated
CPT/HCPCS: 73630; 99283

== ENCOUNTER 2021-04-13 13:04 | Emergency (ER) | payer MEDICARE, MEDICAID, SELFPAY ==
[2021-04-13 13:05] VITALS: BP 117/75; PULSE 79; RESP 14; TEMP 36.3; O2SAT 98; BMI 29.9
[2021-04-13 13:52] LABS: Red Blood Cells-Urine 0 SEEN /hpf (0-5)
[2021-04-13] MEDS: 0.9% Normal Saline 1,000 ML 999 ML IV (13:53)
[2021-04-13 13:55] LABS: Absolute Lymphocyte Count 2.22 X10^3/uL (0.83-4.51); Absolute Neutrophil Count 3.2 X10^3/uL (2.0-7.7); Basophil# 0.06 X10^3/uL; Eosinophil# 0.35 X10^3/uL; Eosinophils% 5.6 % (0-5); Hematocrit 41.6 % (37-47); Hemoglobin 13.5 g/dL (12.0-15.0); Lymphocyte # 2.22 X10^3/ul (0.83-4.51); Lymphocyte % 35.8 % (19-41); Mean Corp Hgb Conc 32.5 g/dL (32-36); Mean Corpuscular Hgb 29.6 pg (27.0-32.0); Mean Corpuscular Volume 91.2 fL (81-99); Mean Platelet Vol. 9.9 fl (6.2-12.0); Monocyte# 0.37 X10^3/uL; NRBC Flagged by Analyzer 0 % (0-5); Neutrophil # 3.19 X10^3/uL (2.7-7.7); Neutrophil % 51.4 % (47-70); Platelet Count 214 K/mm3 (150-450); RBC Distribution Width CV 13.3 % (11.6-14.6); RBC Distribution Width SD 44.8 fl (35.1-43.9); Red Blood Count 4.56 M/mm3 (4.2-5.4); White Blood Count 6.2 K/mm3 (4.4-11.0)
[2021-04-13 14:01] LABS: Color, Urine Yellow (Yellow); Glucose, Dipstick Normal (Normal); Ketone-Dipstick Negative (Negative); Leukocyte Esterase-Dipstick 25 /ul (Negative); Nitrite-Dipstick Negative (Negative); Occult Blood-Urine Negative /ul (Negative); Protein-Dipstick Negative (Negative); Specific Gravity, Urine 1.025 (1.002-1.030); Urine Bilirubin Dipstick Negative (Negative); Urine Clarity Sl. Cloudy (Clear); Urine Urobilinogen Normal (Normal)
[2021-04-13 14:05] LABS: Erythrocyte Sedimentation Rate 5 mm/hr (0-30)
[2021-04-13 14:09] LABS: ALB/GLOB Ratio 0.9 RATIO (0.9-2.4); AST(SGOT) 24 U/L (15-37); Alanine Aminotransfer ALT/SGPT 22 U/L (13-56); Albumin, Serum 2.9 g/dL (3.2-5.0); Alkaline Phosphatase 65 U/L (45-117); Anion Gap 5 (5-15); BUN 15 mg/dL (7-18); Calcium,Total 8.3 mg/dL (8.5-10.1); Chloride 112 mmol/L (98-107); Creatinine, Serum 0.71 mg/dL (0.55-1.02); EST Glomerular Filtration Rate 93 mL/min (>60); Est Glom Filt Rate - Afr Amer 112 mL/min (>60); Estimated Creatinine Clearance 87.19 ml/min; Globulin 3.2 g/dL (2.2-4.2); Glucose 88 mg/dL (74-106); Potassium 4.2 mmol/L (3.5-5.1); Protein, Total 6.1 g/dL (6.4-8.2); Sodium Level 142 mmol/L (136-145)
[2021-04-13 14:09] LABS: Bacteria 1+ /hpf (None Seen); Mucous, Urine 1+ /hpf (<or=2+); Squamous Epithelial Cells - UA 5-10 SEEN /hpf (5-10); White Blood Cells 0-5 SEEN /hpf (0-5)
--- NOTE | 2021-04-13 14:29 | EX.ED.DYSGE1 ---
HPI History of Present Illness Chief Complaint: General Illness Informant: patient Narrative Narrative: 50-year-old female presents the emergency department stating she has a flareup of her connective tissue disorder. She tells me that she has not been to her [employer] consultant for 3 years and is preferring to treat herself naturally. She states that when she has flares she calls her family doctor and gets on prednisone. She states that she has not done that this time. She states that for the past week she has had difficulty walking and difficulty with vision in her right eye. She feels fatigued. She states that sometimes she has a urinary tract infection that will cause this and wonders if that is what is going on today because her urine has been darker than normal [facility] Medical History Depression Fibromyalgia Mixed connective tissue disease Home Medications multivitamin 1 ea PO DAILY 04/15/19 [History Last Taken Unknown] ibuprofen 600 mg PO Q6H PRN #60 tab 04/17/19 [Rx Last Taken Unknown] cannabidiol 1 cap PO DAILY PRN 05/29/20 [History Last Taken Unknown] mecobalamin (vitamin B12) 1,000 mcg PO DAILY 05/29/20 [History Last Taken Unknown] diflunisal 500 mg PO BID #20 tab 02/14/21 [Rx Last Taken Unknown] prednisone 10 mg PO DAILY PRN 02/14/21 [History Last Taken Unknown] prednisone 60 mg PO DAILY #15 tablet 04/13/21 [Rx Last Taken Unknown] Allergy/AdvReac Type Severity Reaction Status Date / Time gabapentin Allergy Itching Verified 02/14/21 08:12 hydrocodone bitartrate Allergy Hives Verified 02/14/21 08:12 [From Vicodin] morphine Allergy Itching Verified 02/14/21 08:12 naproxen AdvReac Other Verified 02/14/21 08:12 pregabalin [From Lyrica] AdvReac Other Verified 02/14/21 08:12 Social History Smoking Status: Current every day smoker tobacco type: cigarettes ROS ROS ED Constitutional Constitutional ED: Denies chills or weight loss Eyes Eyes: Reports change in vision; Denies diplopia ENT ENT ED: Denies ear pain, rhinorrhea or sore throat Cardiovascular Cardiovascular: Denies chest pain, orthopnea, palpitations or racing heartbeat Respiratory/Chest Respiratory/Chest: Denies cough, dyspnea or orthopnea Gastrointestinal Gastrointestinal: Denies abdominal pain, diarrhea, nausea or vomiting Genitourinary Genitourinary ED: Denies dysuria, hematuria or urinary frequency Musculoskeletal Musculoskeletal: Denies arthralgias or myalgias Integumentary Denies abscess or rash Neurologic Neurologic: Reports other Details: Feeling of off balance ; Denies headache(s) or weakness Psychiatric Psychiatric: Denies anxiety, depression, suicidal ideation or suicidal thoughts Endocrine Endocrinology: Denies polydipsia, polyphagia or polyuria Allergic/Immunologic Allergic/Immunologic ED: Denies mouth swelling, tongue swelling or urticaria EXAM Physical Exam Const Vital Signs: 04/13/21 13:05 04/13/21 13:54 Temperature 97.4 F L Temperature Source Temporal Pulse Rate 79 Respiratory Rate 14 Respiratory Effort Normal Respiratory Pattern Normal Blood Pressure 117/75 Blood Pressure Mean 89 Pulse Ox 98 Oxygen Delivery Method Room Air Positive well nourished and well developed General Appearance ED: well developed HEENT Reports normocephalic, head/scalp atraumatic and moist mucous membranes Eyes PERRL and EOMs intact bilaterally Neck no lymphadenopathy, supple and no JVD Resp normal respiratory effort and clear to auscultation bilaterally Cardio regular rate, regular rhythm and no murmurs GI normal to inspection, nondistended, normoactive bowel sounds and non-tender Palpation: soft Back/Spine no CVA tenderness and normal ROM Extremity normal to inspection General Extremety ED: Negative for edema General Extremity: Negative for edema Neuro oriented x3 and CN's II-XII intact bilaterally Sensorium / Orientation: alert Motor Exam: strength 5/5 throughout Psych mental status grossly normal Mood & Affect: Negative for depressed or tearful Skin no rashes or lesions noted and no wounds MDM MDM MDM Narrative Medical decision making narrative: Patient's creatinine and LFTs are normal. Urinalysis shows no obvious infection. Sed rate is 5. Patient will be given a dose of Solu-Medrol and IV fluids. She will be discharged home with burst steroids and have her follow-up with her doctors. Lab Data Attestation: I reviewed the patient's lab results. Labs: Laboratory Results - last 24 hr 04/13/21 04/13/21 04/13/21 13:46 13:47 13:47 WBC 6.2 RBC 4.56 Hgb 13.5 Hct 41.6 MCV 91.2 MCH 29.6 MCHC 32.5 RDW Std Deviation 44.8 H RDW Coeff of Zuly 13.3 Plt Count 214 MPV 9.9 Immature Gran % (Auto) 0.200 Neut % (Auto) 51.4 Lymph % (Auto) 35.8 Andrews % (Auto) 6.0 Eos % (Auto) 5.6 H Baso % (Auto) 1.0 Absolute Neuts (auto) 3.2 Absolute Lymphs (auto) 2.22 Nucleated RBC % 0 ESR 5 Sodium 142 Potassium 4.2 Chloride 112 H Carbon Dioxide 25.0 Anion Gap 5 BUN 15 Creatinine 0.71 Estim Creat Clear Calc 87.19 Est GFR (MDRD) Af Amer 112 Est GFR (MDRD) Non-Af 93 BUN/Creatinine Ratio 21.0 H Glucose 88 Calcium 8.3 L Total Bilirubin 0.30 AST 24 ALT 22 Alkaline Phosphatase 65 Total Protein 6.1 L Albumin 2.9 L Globulin 3.2 Albumin/Globulin Ratio 0.9 Urine Color Yellow Urine Clarity Sl. Cloudy Urine pH 5.0 Ur Specific [place] 1.025 Urine Protein Negative Urine Glucose (UA) Normal Urine Ketones Negative Urine Occult Blood Negative Urine Nitrite Negative Urine Bilirubin Negative Urine Urobilinogen Normal Ur Leukocyte Esterase 25 H Urine RBC 0 SEEN Urine WBC 0-5 SEEN Ur Squamous Epith Cells 5-10 SEEN Urine Bacteria 1+ Urine Mucus 1+ Discharge Plan Triage Chief Complaint: General Illness ED Provider: Yan Wellington Dx/Rx/DC Orders Clinical Impression: Connective tissue disorder Prescriptions: New prednisone 20 MG tablet 60 mg PO DAILY Qty: 15 RF: 0 No Action multivitamin 1 EACH tablet 1 ea PO DAILY RF: 0 ibuprofen 600 MG tablet 600 mg PO Q6H PRN (Reason: Pain) Qty: 60 RF: 1 cannabidiol 100 MG/ML solution 1 cap PO DAILY PRN (Reason: Pain Or Fever) RF: 0 mecobalamin (vitamin B12) 1,000 MCG tablet,chewable 1,000 mcg PO DAILY RF: 0 prednisone 10 mg Tablet 10 mg PO DAILY PRN (Reason: Constipation) RF: 0 diflunisal 500 mg tablet 500 mg PO BID Qty: 20 RF: 0 Primary Care Provider: Rosanna Alfred Referrals: Rosanna Alfred, DO [Primary Care Provider] - As soon as possible Disposition Disposition: Home, Self Care
[2021-04-13] MEDS: MethylPREDNISolone 125 MG/2 ML Vial 60 MG IV (14:46)
[2021-04-13 14:48] VITALS: BP 129/60; PULSE 72; RESP 15; O2SAT 98
== END 2021-04-13 14:51 | disposition home or self-care (01) ==
PROVIDERS: Emergency Provider Emergency Medicine; PCP Family Medicine
DX: M35.1 Other overlap syndromes (principal); F32.9 Major depressive disorder, single episode, unspecified; M79.7 Fibromyalgia; Z87.440 Personal history of urinary (tract) infections; Z79.52 Long term (current) use of systemic steroids; Z79.899 Other long term (current) drug therapy; F17.210 Nicotine dependence, cigarettes, uncomplicated
CPT/HCPCS: 80053; 81001; 85025; 85652; 96361; 96374; 99283

== ENCOUNTER 2021-05-26 20:06 | Emergency (ER) | payer MEDICARE, MEDICAID, SELFPAY ==
[2021-05-26 20:07] VITALS: BP 132/88; PULSE 86; RESP 18; TEMP 36.2; O2SAT 96; BMI 28.3
--- NOTE | 2021-05-26 20:10 | EKG12_ITS ---
Test Reason : CP Blood Pressure : / mmHG Vent. Rate : 081 BPM Atrial Rate : 081 BPM P-R Int : 132 ms QRS Dur : 084 ms QT Int : 390 ms P-R-T Axes : 060 024 045 degrees QTc Int : 453 ms Normal sinus rhythm Normal ECG Confirmed by NARCISO MCGEE, OBED ([id number]), editor index GERBER CHOI ([id number]) on 05/30/2021 1:04:25 PM Referred By: CLAUDIA/SAIMA Confirmed By:OBED STUART MD
--- NOTE | 2021-05-26 20:28 | RAD_ITS ---
STUDY: X-RAY CHEST REASON FOR EXAM: Female, 50 years old. CHEST PAIN TECHNIQUE: Single frontal view of the chest. COMPARISON: None. FINDINGS: The lungs are clear and expanded. There is no demonstrated pleural abnormality. Normal size heart. Normal mediastinum and anabel. Normal visualized pulmonary arteries. Normal visualized aortic arch and descending thoracic aorta. Normal visualized thoracic spine. Normal visualized ribs, clavicles, and shoulders. There is no demonstrated abnormality of the visualized soft tissue structures of the upper abdomen. RAD/Chest 1 View (Portable) IMPRESSION: Normal x-ray examination of the chest. Electronically Signed: Cristi Spencer MD at 21:01 EDT Tel , Service support ,
[2021-05-26 20:29] LABS: Absolute Lymphocyte Count 2.37 X10^3/uL (0.83-4.51); Absolute Neutrophil Count 6.2 X10^3/uL (2.0-7.7); Basophil# 0.05 X10^3/uL; Basophil% 0.5 % (0-1); Eosinophil# 0.26 X10^3/uL; Eosinophils% 2.8 % (0-5); Hematocrit 43.6 % (37-47); Hemoglobin 14.2 g/dL (12.0-15.0); Lymphocyte # 2.37 X10^3/ul (0.83-4.51); Lymphocyte % 25.6 % (19-41); Mean Corp Hgb Conc 32.6 g/dL (32-36); Mean Corpuscular Hgb 29.3 pg (27.0-32.0); Mean Corpuscular Volume 90.1 fL (81-99); Mean Platelet Vol. 9.6 fl (6.2-12.0); Monocyte# 0.34 X10^3/uL; Monocyte% 3.7 % (0-10); NRBC Flagged by Analyzer 0 % (0-5); Neutrophil # 6.17 X10^3/uL (2.7-7.7); Neutrophil % 66.9 % (47-70); Platelet Count 279 K/mm3 (150-450); RBC Distribution Width SD 42.9 fl (35.1-43.9); Red Blood Count 4.84 M/mm3 (4.2-5.4); White Blood Count 9.2 K/mm3 (4.4-11.0)
[2021-05-26 20:49] LABS: Anion Gap 7 (5-15); BUN 13 mg/dL (7-18); BUN/Creat Ratio 20.8 RATIO (10-20); Calcium,Total 8.6 mg/dL (8.5-10.1); Chloride 111 mmol/L (98-107); Creatinine, Serum 0.63 mg/dL (0.55-1.02); EST Glomerular Filtration Rate 108 mL/min (>60); Est Glom Filt Rate - Afr Amer 130 mL/min (>60); Estimated Creatinine Clearance 98.27 ml/min; Glucose 95 mg/dL (74-106); Potassium 4.1 mmol/L (3.5-5.1); Sodium Level 140 mmol/L (136-145); Troponin-I HS 5 pg/mL (3.0-54.0)
--- NOTE | 2021-05-26 21:13 | ED.VIS.CHEST ---
HPI History of Present Illness Chief Complaint: Chest Pain Informant: patient Onset/Context/Timing Onset: Today Activity at onset: sudden Timing: Lasts (Approximately 10-minutes) Quality: Positive for Sharp and Tightness Location: Substernal Current Severity: Gone Maximum Severity: Moderate Narrative Narrative: Patient presents secondary to a 10-minute episode of chest pain that she had prior to arrival. Patient states she was sitting at rest when she developed a tight sharp pain in the substernal area. Symptoms last approximate 10 minutes and then resolved. She states her breathing was heavy during the episode but she did not practically feel short of breath. She denies known history of cardiac disease. She does note increased reflux recently and states she has been taking Tums a lot to control this. [facility] Medical History Depression Fibromyalgia Mixed connective tissue disease Home Medications multivitamin 1 ea PO DAILY 04/15/19 [History Last Taken Unknown] ibuprofen 600 mg PO Q6H PRN #60 tab 04/17/19 [Rx Last Taken Unknown] cannabidiol 1 cap PO DAILY PRN 05/29/20 [History Last Taken Unknown] mecobalamin (vitamin B12) 1,000 mcg PO DAILY 05/29/20 [History Last Taken Unknown] diflunisal 500 mg PO BID #20 tab 02/14/21 [Rx Last Taken Unknown] prednisone 10 mg PO DAILY PRN 02/14/21 [History Last Taken Unknown] prednisone 60 mg PO DAILY #15 tablet 04/13/21 [Rx Last Taken Unknown] omeprazole 20 mg PO DAILY #30 cap 05/26/21 [Rx Last Taken Unknown] Allergy/AdvReac Type Severity Reaction Status Date / Time gabapentin Allergy Itching Verified 05/26/21 20:09 hydrocodone bitartrate Allergy Hives Verified 05/26/21 20:09 [From Vicodin] morphine Allergy Itching Verified 05/26/21 20:09 naproxen AdvReac Other Verified 05/26/21 20:09 pregabalin [From Lyrica] AdvReac Other Verified 05/26/21 20:09 Social History Smoking Status: Current every day smoker tobacco type: cigarettes ROS ROS ED Constitutional Constitutional ED: Denies chills or fever(s) Eyes Eyes: Denies change in vision ENT ENT ED: Denies sore throat Cardiovascular Cardiovascular: Reports chest pain Respiratory/Chest Respiratory/Chest: Denies cough or dyspnea Gastrointestinal Gastrointestinal: Denies abdominal pain, diarrhea, nausea or vomiting Genitourinary Genitourinary ED: Denies dysuria Musculoskeletal Musculoskeletal: Denies back pain Integumentary Denies rash Neurologic Neurologic: Denies headache(s) or weakness Allergic/Immunologic Allergic/Immunologic ED: Denies urticaria EXAM Physical Exam Const Vital Signs: 05/26/21 20:07 05/26/21 21:35 Temperature 97.2 F L Temperature Source Temporal Pulse Rate 86 89 Respiratory Rate 18 19 H Blood Pressure 132/88 H Blood Pressure Mean 102 Pulse Ox 96 99 Oxygen Delivery Method Room Air Positive well nourished and well developed General Appearance ED: well developed HEENT Reports normocephalic and head/scalp atraumatic Eyes PERRL and EOMs intact bilaterally Neck supple Chest Wall inspection of chest normal and palpation of chest normal Resp normal respiratory effort and clear to auscultation bilaterally Cardio regular rate and regular rhythm GI normal to inspection, nondistended, normoactive bowel sounds and soft to palpation GI Narrative: Mild epigastric tenderness. Palpation: soft Extremity normal to inspection Neuro oriented x3 Sensorium / Orientation: alert Psych mental status grossly normal Skin no rashes or lesions noted Heart Score History: Slightly/Non-Suspicious ECG: Normal Age: >45 - <65 years Risk Factors: 1 or 2 Risk Factors Troponin: </= Normal Limit Score: 2 MDM MDM MDM Narrative Medical decision making narrative: Chest pain work-up initiated via nursing protocol. Patient is pain-free at the time of my examination. Lab Data Attestation: I reviewed the patient's lab results. Labs: Laboratory Results - last 24 hr 05/26/21 05/26/21 20:20 20:20 WBC 9.2 RBC 4.84 Hgb 14.2 Hct 43.6 MCV 90.1 MCH 29.3 MCHC 32.6 RDW Std Deviation 42.9 RDW Coeff of Zuly 13.0 Plt Count 279 MPV 9.6 Immature Gran % (Auto) 0.500 Neut % (Auto) 66.9 Lymph % (Auto) 25.6 Boyle % (Auto) 3.7 Eos % (Auto) 2.8 Baso % (Auto) 0.5 Absolute Neuts (auto) 6.2 Absolute Lymphs (auto) 2.37 Nucleated RBC % 0 Sodium 140 Potassium 4.1 Chloride 111 H Carbon Dioxide 22.0 Anion Gap 7 BUN 13 Creatinine 0.63 Estim Creat Clear Calc 98.27 Est GFR (MDRD) Af Amer 130 Est GFR (MDRD) Non-Af 108 BUN/Creatinine Ratio 20.8 H Glucose 95 Calcium 8.6 Troponin I High Sens 5 Radiography Chest X-Ray - ED: 1 View, Read by ED Physician, Normal, Heart, Lungs and Mediastinum Diagnostic Testing: Radiology Impression Chest X-Ray 05/26/21 20:28 IMPRESSION: Normal x-ray examination of the chest. Electronically Signed: Cristi Spencer MD at 21:01 EDT Tel , Service support , EKG Initial EKG: Attestation: I personally reviewed and interpreted this EKG as follows: Interpretation: Sinus Rhythm (Sinus 81 with no acute ischemia.) Treatment and Re-Evaluation Comments:: Test results discussed with patient at bedside. She has had increased reflux recently and is not on any medication for this. She will be discharged with a prescription for Prilosec. Return instructions provided. Discharge Plan Triage Chief Complaint: Chest Pain ED Provider: Oanh John Dx/Rx/DC Orders Clinical Impression: Chest pain Instructions: ED Chest Pain, Noncardiac Prescriptions: New omeprazole 20 mg capsule,delayed release(DR/EC) 20 mg PO DAILY Qty: 30 RF: 0 No Action multivitamin 1 EACH tablet 1 ea PO DAILY RF: 0 ibuprofen 600 MG tablet 600 mg PO Q6H PRN (Reason: Pain) Qty: 60 RF: 1 cannabidiol 100 MG/ML solution 1 cap PO DAILY PRN (Reason: Pain Or Fever) RF: 0 mecobalamin (vitamin B12) 1,000 MCG tablet,chewable 1,000 mcg PO DAILY RF: 0 prednisone 10 mg Tablet 10 mg PO DAILY PRN (Reason: Constipation) RF: 0 diflunisal 500 mg tablet 500 mg PO BID Qty: 20 RF: 0 prednisone 20 MG tablet 60 mg PO DAILY Qty: 15 RF: 0 Primary Care Provider: Rosanna Alfred Referrals: Rosanna Alfred DO [Primary Care Provider] - 1-2 Weeks Disposition Disposition: Home, Self Care Discharge Date/Time: 05/26/21 21:36
[2021-05-26 21:35] VITALS: PULSE 89; RESP 19; O2SAT 99
--- NOTE | 2021-05-26 21:35 | ED.RN ---
pt refused protonix. states she will take some at home. notified
== END 2021-05-26 21:36 | disposition home or self-care (01) ==
LOC: ED 21:25
PROVIDERS: Emergency Provider Emergency Medicine; PCP Family Medicine
DX: R07.89 Other chest pain (principal); F32.9 Major depressive disorder, single episode, unspecified; M79.7 Fibromyalgia; M35.1 Other overlap syndromes; Z79.52 Long term (current) use of systemic steroids; Z79.899 Other long term (current) drug therapy; F17.210 Nicotine dependence, cigarettes, uncomplicated
CPT/HCPCS: 71045; 80048; 84484; 85025; 93005; 99282; A4216

== ENCOUNTER 2021-11-02 16:29 | Emergency (ER) | payer MEDICARE, MEDICAID, SELFPAY ==
[2021-11-02 16:30] VITALS: BP 135/67; PULSE 79; RESP 16; TEMP 36.4; O2SAT 100; BMI 31.6
--- NOTE | 2021-11-02 16:52 | RAD_ITS ---
STUDY: X-RAY - RIGHT HAND REASON FOR EXAM: Female, 51 years old. Hand pain for a while. Increased thumb pain after waking up this morning. TECHNIQUE: 3 view(s) of the hand. COMPARISON: 05/16/2019. FINDINGS: Normal radiocarpal articulation. Normal distal radioulnar joint. There is a stable cyst in the capitellum. Otherwise normal visualized carpal bones. Normal carpal articulations There is minimal degenerative arthrosis of the carpometacarpal (CMC) articulation of the thumb. There are cystic changes at the base of the first metacarpal not appreciated on the previous study. Normal second through fifth carpometacarpal joints. Normal second through fifth metacarpi. Normal metacarpophalangeal joint of the thumb. Normal interphalangeal joint of the thumb. Normal proximal and distal phalanges of the thumb. Normal metacarpophalangeal joints of the second through fifth fingers. Normal proximal and distal interphalangeal joints of the second through fifth fingers. Normal phalanges of the second through fifth fingers. The soft tissue structures are unremarkable. RAD/Hand Min 3 Views IMPRESSION: 1. Cystic changes at the base of the first metacarpal not previously seen. This is possibly due to progressive arthrosis the remainder of the findings are unchanged.. Electronically Signed: Zacarias Hood DO at 17:13 EST ,
--- NOTE | 2021-11-02 17:05 | EX.ED.UPPERE ---
HPI History of Present Illness Chief Complaint: Upper Extremity Injury Detail of Chief Complaint: Pain at the base of the right thumb for the year. Informant: patient Onset/Context/Timing Onset: Month(s) Context: Gradual Onset Timing: Continuous Current Severity: Mild Maximum Severity: Mild Associated Symptoms Associated Symptoms: Negative for Parasthesia, Weakness and Loss of Funtion Narrative Narrative: 51-year-old female [id number]. Has had pain in the basilar right thumb for about a year. Denies any trauma. No known injury. No prior surgery. She has a history of mixed connective tissue disease. Prior similar symptoms: Yes Recent Illness/Hospitalization: No PFSH PFS Medical History Asthma Depression Fibromyalgia Hepatitis Mixed connective tissue disease Home Medications multivitamin 1 ea PO DAILY 04/15/19 [History Last Taken Unknown] ibuprofen 600 mg PO Q6H PRN #60 tab 04/17/19 [Rx Last Taken Unknown] cannabidiol 1 cap PO DAILY PRN 05/29/20 [History Last Taken Unknown] mecobalamin (vitamin B12) 1,000 mcg PO DAILY 05/29/20 [History Last Taken Unknown] diflunisal 500 mg PO BID #20 tab 02/14/21 [Rx Last Taken Unknown] prednisone 10 mg PO DAILY PRN 02/14/21 [History Last Taken Unknown] prednisone 60 mg PO DAILY #15 tablet 04/13/21 [Rx Last Taken Unknown] omeprazole 20 mg PO DAILY #30 cap 05/26/21 [Rx Last Taken Unknown] Allergy/AdvReac Type Severity Reaction Status Date / Time gabapentin Allergy Itching Verified 05/26/21 20:09 hydrocodone bitartrate Allergy Hives Verified 05/26/21 20:09 [From Vicodin] morphine Allergy Itching Verified 05/26/21 20:09 naproxen AdvReac Other Verified 05/26/21 20:09 pregabalin [From Lyrica] AdvReac Other Verified 05/26/21 20:09 Social History Smoking Status: Current every day smoker tobacco type: cigarettes ROS ROS ED ROS Narrative Denies recent illness. Review of Systems ROS Unobtainable: Denies due to encephalopathy Constitutional Constitutional ED: Denies fever(s) Eyes Eyes: Denies change in vision ENT ENT ED: Denies ear pain Cardiovascular Cardiovascular: Denies chest pain Respiratory/Chest Respiratory/Chest: Denies dyspnea Gastrointestinal Gastrointestinal: Denies abdominal pain Genitourinary Genitourinary ED: Denies dysuria Musculoskeletal Musculoskeletal: Denies myalgias Integumentary Denies rash Neurologic Neurologic: Denies headache(s) Psychiatric Psychiatric: Denies depression Endocrine Endocrinology: Denies polyuria Hematologic/Lymphatic Hematologic/Lymphatic: Denies easy bruising Allergic/Immunologic Allergic/Immunologic ED: Denies urticaria EXAM Physical Exam Narrative Exam Narrative: 51-year-old female no acute distress. Sitting upright in a chair. Vital signs stable afebrile. H EENT exam unremarkable atraumatic. Neck nontender. Lungs are clear. Heart regular rhythm no murmur. Abdomen soft nontender. Extremities moves all 4. No rash intact. Right shoulder and elbow have normal range of motion nontender no swelling. Right wrist has normal flexion extension radial and ulnar deviation. Mild swelling. No redness. She has tenderness to the base of the right thumb at the metacarpal carpal joint. And also at the proximal phalanx of the thumb and metacarpal. No form knee. Full range of motion. No cellulitis. No septic joint. Const Vital Signs: 11/02/21 16:30 Temperature 97.6 F L Temperature Source Temporal Pulse Rate 79 Respiratory Rate 16 Blood Pressure 135/67 H Blood Pressure Mean 89 Pulse Ox 100 Oxygen Delivery Method Room Air Positive well nourished and well developed; Negative for obese, cachectic, contractures or unkempt General Appearance ED: well developed and NAD; Negative for unkempt, cachectic or contractures Nutritional Appearance: Negative for cachectic or obese HEENT Reports moist mucous membranes normocephalic and atraumatic; Negative for trauma or tenderness Eyes PERRL and EOMs intact bilaterally Neck full ROM and supple General: Negative for tenderness Chest Wall inspection of chest normal and palpation of chest normal Resp normal respiratory effort and clear to auscultation bilaterally Effort and Inspection: Negative for pain with movement Auscultation: Negative for rales, rhonchi or wheezes Cardio regular rate, regular rhythm, S1 normal heart sound, S2 normal heart sound and no murmurs GI non-tender, non-distended and no masses Auscultation: normoactive bowel sounds Palpation: soft; Negative for tender, guarding or rebound tenderness present Back/Spine no CVA tenderness General Back: Negative for CVA tenderness Cervical Spine: Negative for cervical spine tenderness Thoracic Spine / Upper Back: Negative for thoracic spinal tenderness Lumbar Spine / Lower Back: Negative for lumbar spinal tenderness Extremity normal to inspection and full ROM Extremity Narrative: Tenderness base of right thumb between the metacarpal and normal. Carpal bone. No swelling. No deformity. Normal range of motion. General Extremety ED: Negative for edema or other findings General Extremity: Negative for edema or other findings Neuro oriented x3, moves all extremities, no focal motor deficits and no sensory deficits noted Sensorium / Orientation: alert, oriented to person, oriented to place and oriented to time; Negative for orientation impaired, lethargic or stuporous Psych mental status grossly normal Appearance: Negative for unkempt Attitude: No agitated Mood & Affect: Negative for depressed, anxious or tearful Skin Lesions: no lesions Rashes: no rashes Trauma: no lacerations or abrasions; Negative for abrasion or laceration MDM MDM MDM Narrative Medical decision making narrative: 51-year-old female with chronic right thumb pain. X-ray appears to be secondary to arthritis. There is no fracture or dislocation. Ice and elevate. Tylenol Motrin for pain. Radiography Diagnostic Testing: Right hand x-ray shows no acute abnormality. There is arthritic changes between the thumb metacarpal and the carpal bone. No fracture nor dislocation. Discharge Plan Triage Chief Complaint: Upper Extremity Injury ED Provider: Geovanny Luis Dx/Rx/DC Orders Clinical Impression: Arthritis of carpometacarpal (CMC) joint of right thumb, Connective tissue disorder Instructions: Osteoarthritis Prescriptions: No Action multivitamin 1 EACH tablet 1 ea PO DAILY RF: 0 ibuprofen 600 MG tablet 600 mg PO Q6H PRN (Reason: Pain) Qty: 60 RF: 1 cannabidiol 100 MG/ML solution 1 cap PO DAILY PRN (Reason: Pain Or Fever) RF: 0 mecobalamin (vitamin B12) 1,000 MCG tablet,chewable 1,000 mcg PO DAILY RF: 0 prednisone 10 mg Tablet 10 mg PO DAILY PRN (Reason: Constipation) RF: 0 diflunisal 500 mg tablet 500 mg PO BID Qty: 20 RF: 0 prednisone 20 MG tablet 60 mg PO DAILY Qty: 15 RF: 0 omeprazole 20 mg capsule,delayed release(DR/EC) 20 mg PO DAILY Qty: 30 RF: 0 Primary Care Provider: Rosanna Alfred Referrals: Rosanna Alfred, [Primary Care Provider] - 10-14 Days if not better Activity Restrictions/Additional Instructions: Ice and elevate your thumb to decrease the pain and swelling. Tylenol for pain and Motrin for pain and swelling. If you are already taking steroids do not use the Motrin. Follow-up with your doctor as needed. Disposition Disposition: Home, Self Care
== END 2021-11-02 17:45 | disposition home or self-care (01) ==
PROVIDERS: Emergency Provider Emergency Medicine; PCP Family Medicine; Visit Provider Emergency Medicine
DX: M19.041 Primary osteoarthritis, right hand (principal); M35.9 Systemic involvement of connective tissue, unspecified; F17.210 Nicotine dependence, cigarettes, uncomplicated; F32.A Depression, unspecified; M79.7 Fibromyalgia; J45.909 Unspecified asthma, uncomplicated; Z79.899 Other long term (current) drug therapy
CPT/HCPCS: 73130; 99282

== ENCOUNTER 2022-05-19 13:54 | Emergency (ER) | payer MEDICARE, MEDICAID, SELFPAY ==
[2022-05-19 13:55] VITALS: BP 131/88; PULSE 71; RESP 16; TEMP 37; O2SAT 97; BMI 29.9
[2022-05-19 14:00] VITALS: BP 130/88; PULSE 80
--- NOTE | 2022-05-19 15:02 | CT_ITS ---
EXAMINATION : Head CT w/out contrast HISTORY : confusion weakness COMPARISON : None. TECHNIQUE : Multiple contiguous axial images were obtained from the skull base to the vertex without intravenous contrast. A radiation dose optimization technique was used for this scan. FINDINGS : The ventricles and sulci are normal in size. There is no evidence for acute intracranial hemorrhage, mass effect, or midline shift. There is no extra-axial fluid collection. There is normal crowley-white differentiation, without CT evidence of acute ischemia or infarct. The skull base and calvarium are unremarkable. The orbits are unremarkable. The paranasal sinuses are clear. The mastoid air cells are well-aerated. The soft tissues are unremarkable. CT/Brain/Head without Contrast IMPRESSION: No acute intracranial abnormality. Electronically Signed: Link Montiel MD at 16:24 EDT ,
--- NOTE | 2022-05-19 15:12 | EDS_ITS ---
HPI History of Present Illness Chief Complaint: Confusion Detail of Chief Complaint: [email or web address] Informant: patient Narrative Narrative: Patient states she is having a flare of her mixed connective tissue disorder. For the last 2 weeks she is just felt a little confused and slow. She has had achy joints. Her energy level is been a little low. These are her typical symptoms. She did wake up last weekend and had a few seconds where she could not move and this scared her. But has not repeated. She also complains of some ringing in her ears and a congested feeling in her ears. She was seen for this and was told ears look normal. She is currently not on steroids and has not been. But these have helped her symptoms. No coughing or trouble breathing. Nothing makes the symptoms better or worse. She does admit she is under quite a bit of stress and this would be a normal trigger for her. [facility] Medical History Asthma Depression Fibromyalgia Hepatitis Mixed connective tissue disease Home Medications multivitamin 1 ea PO DAILY 04/15/19 [History Last Taken Unknown] ibuprofen 600 mg tablet 600 mg PO Q6H PRN Pain #60 tabs 04/17/19 [Rx Last Taken Unknown] cannabidiol 100 mg/mL oral solution 1 cap PO DAILY PRN Pain Or Fever 05/29/20 [History Last Taken Unknown] mecobalamin (vitamin B12) 1,000 mcg chewable tablet 1,000 mcg PO DAILY 05/29/20 [History Last Taken Unknown] diflunisal 500 mg tablet 500 mg PO BID #20 tabs 02/14/21 [Rx Last Taken Unknown] prednisone 10 mg tablet 10 mg PO DAILY PRN Constipation 02/14/21 [History Last Taken Unknown] prednisone 20 mg tablet 60 mg PO DAILY #15 TABLETS 04/13/21 [Rx Last Taken Unknown] omeprazole 20 mg capsule,delayed release 20 mg PO DAILY #30 caps 05/26/21 [Rx Last Taken Unknown] Allergy/AdvReac Type Severity Reaction Status Date / Time gabapentin Allergy Itching Verified 05/19/22 13:57 hydrocodone bitartrate Allergy Hives Verified 05/19/22 13:57 [From Vicodin] morphine Allergy Itching Verified 05/19/22 13:57 naproxen AdvReac Other Verified 05/19/22 13:57 pregabalin [From Lyrica] AdvReac Other Verified 05/19/22 13:57 Social History Smoking Status: Current every day smoker tobacco type: cigarettes ROS ROS ED Constitutional Constitutional ED: Denies chills, fever(s) or sweats Eyes Eyes: Denies blurry vision, change in vision or diplopia ENT ENT ED: Reports ear pain; Denies rhinorrhea or sore throat Cardiovascular Cardiovascular: Denies chest pain or palpitations Respiratory/Chest Respiratory/Chest: Denies cough or dyspnea Gastrointestinal Gastrointestinal: Denies abdominal pain, nausea or vomiting Genitourinary Genitourinary ED: Denies dysuria Musculoskeletal Musculoskeletal: Reports arthralgias; Denies neck pain Integumentary Denies rash Neurologic Neurologic: Reports weakness; Denies headache(s) Psychiatric Psychiatric: Reports anxiety Endocrine Endocrinology: Denies polydipsia or polyuria Hematologic/Lymphatic Hematologic/Lymphatic: Denies easy bleeding or easy bruising Allergic/Immunologic Allergic/Immunologic ED: Denies urticaria EXAM Physical Exam Const Vital Signs: 05/19/22 13:55 Temperature 98.6 F Temperature Source Temporal Pulse Rate 71 Respiratory Rate 16 Blood Pressure 131/88 H Blood Pressure Mean 102 Pulse Ox 97 Oxygen Delivery Method Room Air Positive well nourished and well developed; Negative for unkempt General Appearance ED: well developed and NAD; Negative for unkempt, cyanotic or diaphoretic HEENT Reports moist mucous membranes HEENT Narrative: Both tympanic membranes look clear. No canal inflammation or swelling Eyes PERRL and EOMs intact bilaterally Neck no lymphadenopathy and no JVD Neck Narrative: No meningismus Chest Wall inspection of chest normal Resp normal respiratory effort and clear to auscultation bilaterally Cardio regular rate and regular rhythm GI normal to inspection, nondistended, normoactive bowel sounds and non-tender Palpation: soft Back/Spine no CVA tenderness Extremity normal to inspection Extremity Narrative: No specifically inflamed joints that I note. General Extremety ED: Negative for edema or tenderness General Extremity: Negative for edema Neuro oriented x3 Psych Appearance: Negative for unkempt Skin no rashes or lesions noted MDM MDM MDM Narrative Medical decision making narrative: Patient's CBC is normal. Electrolytes are normal other give minimal elevation of chloride at 112. Liver function test are normal. CT shows no acute process. Patient states that she initially felt improvement with IV steroids when they were first injected. She states now she is not so sure. I explained that steroids is usually take hours to days to kick in. Her exam is normal. Her vitals are normal. Her labs and CT are normal. She has had symptoms for 2 weeks. I think she is safe for discharge. She will follow-up with patient reports her physician up in [place]. We discussed reasons to return. These would include worsening symptoms, fever, headache or neck pain, neurologic deficits or other concerns. Lab Data Attestation: I reviewed the patient's lab results. Labs: Laboratory Results - last 24 hr 05/19/22 05/19/22 15:35 15:35 WBC 5.6 RBC 4.62 Hgb 14.3 Hct 42.8 MCV 92.6 MCH 31.0 MCHC 33.4 RDW Std Deviation 43.7 RDW Coeff of Zuly 12.8 Plt Count 231 MPV 10.3 Immature Gran % (Auto) 0.200 Neut % (Auto) 59.2 Lymph % (Auto) 32.0 Randall % (Auto) 3.4 Eos % (Auto) 4.5 Baso % (Auto) 0.7 Absolute Neuts (auto) 3.3 Absolute Lymphs (auto) 1.79 Nucleated RBC % 0 Sodium 142 Potassium 4.0 Chloride 112 H Carbon Dioxide 27.0 Anion Gap 3 L BUN 9 Creatinine 0.62 Estim Creat Clear Calc 98.77 Est GFR (MDRD) Af Amer 132 Est GFR (MDRD) Non-Af 109 BUN/Creatinine Ratio 14.5 Glucose 89 Calcium 8.6 Total Bilirubin 0.70 AST 22 ALT 21 Alkaline Phosphatase 59 Total Protein 6.7 Albumin 3.3 Globulin 3.4 Albumin/Globulin Ratio 1.0 Radiography Diagnostic Testing: Clinical Impression(s) from Imaging Studies Brain CT 05/19/22 15:02 IMPRESSION: No acute intracranial abnormality. Electronically Signed: Link Montiel MD at 16:24 EDT , Discharge Plan Triage Chief Complaint: Confusion ED Provider: George Perez Dx/Rx/DC Orders Clinical Impression: H/O mixed connective tissue disease Instructions: ED Arthralgia Prescriptions: No Action multivitamin 1 EACH tablet 1 ea PO DAILY ibuprofen 600 MG tablet 600 mg PO Q6H PRN (Reason: Pain) Qty: 60 1RF cannabidiol 100 MG/ML solution 1 cap PO DAILY PRN (Reason: Pain Or Fever) mecobalamin (vitamin B12) 1,000 MCG tablet,chewable 1,000 mcg PO DAILY prednisone 10 mg Tablet 10 mg PO DAILY PRN (Reason: Constipation) diflunisal 500 mg tablet 500 mg PO BID Qty: 20 0RF prednisone 20 MG tablet 60 mg PO DAILY Qty: 15 0RF omeprazole 20 mg capsule,delayed release(DR/EC) 20 mg PO DAILY Qty: 30 0RF Primary Care Provider: Rosanna Alfred Referrals: Rosanna Alfred DO [Primary Care Provider] - 3-5 Days Disposition Disposition: Home, Self Care
[2022-05-19] MEDS: MethylPREDNISolone 125 MG/2 ML Vial IV (15:36)
[2022-05-19] MEDS: 0.9% Normal Saline 1,000 ML 1000 ML IV (15:36)
[2022-05-19 15:46] LABS: Absolute Lymphocyte Count 1.79 X10^3/uL (0.83-4.51); Absolute Neutrophil Count 3.3 X10^3/uL (2.0-7.7); Basophil# 0.04 X10^3/uL; Basophil% 0.7 % (0-1); Eosinophil# 0.25 X10^3/uL; Eosinophils% 4.5 % (0-5); Hematocrit 42.8 % (37-47); Hemoglobin 14.3 g/dL (12.0-15.0); Lymphocyte # 1.79 X10^3/ul (0.83-4.51); Mean Corp Hgb Conc 33.4 g/dL (32-36); Mean Corpuscular Volume 92.6 fL (81-99); Mean Platelet Vol. 10.3 fl (6.2-12.0); Monocyte# 0.19 X10^3/uL; Monocyte% 3.4 % (0-10); NRBC Flagged by Analyzer 0 % (0-5); Neutrophil # 3.32 X10^3/uL (2.7-7.7); Neutrophil % 59.2 % (47-70); Platelet Count 231 K/mm3 (150-450); RBC Distribution Width CV 12.8 % (11.6-14.6); RBC Distribution Width SD 43.7 fl (35.1-43.9); Red Blood Count 4.62 M/mm3 (4.2-5.4); White Blood Count 5.6 K/mm3 (4.4-11.0)
[2022-05-19 16:00] VITALS: BP 127/86; PULSE 70
[2022-05-19 16:10] LABS: AST(SGOT) 22 U/L (15-37); Alanine Aminotransfer ALT/SGPT 21 U/L (13-56); Albumin, Serum 3.3 g/dL (3.2-5.0); Alkaline Phosphatase 59 U/L (45-117); Anion Gap 3 (5-15); BUN 9 mg/dL (7-18); BUN/Creat Ratio 14.5 RATIO (10-20); Calcium,Total 8.6 mg/dL (8.5-10.1); Chloride 112 mmol/L (98-107); Creatinine, Serum 0.62 mg/dL (0.55-1.02); EST Glomerular Filtration Rate 109 mL/min (>60); Est Glom Filt Rate - Afr Amer 132 mL/min (>60); Estimated Creatinine Clearance 98.77 ml/min; Globulin 3.4 g/dL (2.2-4.2); Glucose 89 mg/dL (74-106); Protein, Total 6.7 g/dL (6.4-8.2); Sodium Level 142 mmol/L (136-145)
[2022-05-19] MEDS: Ibuprofen 600 MG Tablet PO (16:27)
[2022-05-19 16:38] VITALS: BP 127/85; PULSE 67; RESP 18; O2SAT 97
== END 2022-05-19 16:42 | disposition home or self-care (01) ==
PROVIDERS: Emergency Provider Emergency Medicine; PCP Family Medicine; Visit Provider Emergency Medicine
DX: M35.9 Systemic involvement of connective tissue, unspecified (principal); F17.210 Nicotine dependence, cigarettes, uncomplicated; F32.A Depression, unspecified; J45.909 Unspecified asthma, uncomplicated; M79.7 Fibromyalgia; Z79.899 Other long term (current) drug therapy; Z79.52 Long term (current) use of systemic steroids
CPT/HCPCS: 70450; 80053; 85025; 87428; 96361; 96374; 99283; J7030; A4216

== ENCOUNTER 2024-04-23 14:08 | Emergency (ER) | payer MEDICARE, MEDICAID, SELFPAY ==
[2024-04-23 14:09] VITALS: PULSE 74; RESP 22; TEMP 35.9; O2SAT 100; BMI 27.4
[2024-04-23 14:13] VITALS: BP 126/88
--- NOTE | 2024-04-23 14:30 | EKG12_ITS ---
Test Reason : MEDICAL CLEARANCE Blood Pressure : / mmHG Vent. Rate : 051 BPM Atrial Rate : 051 BPM P-R Int : 150 ms QRS Dur : 100 ms QT Int : 478 ms P-R-T Axes : 062 059 048 degrees QTc Int : 440 ms Sinus bradycardia with sinus arrhythmia Otherwise normal ECG Confirmed by NARCISO MCGEE, OBED ([id number]), assistant film editor LEONOR GAMING ([id number]) on 04/24/2024 1:00:01 PM Referred By: Confirmed By:OBED STUART MD
[2024-04-23 15:00] LABS: Absolute Lymphocyte Count 2.45 X10^3/uL (0.83-4.51); Absolute Neutrophil Count 2.7 X10^3/uL (2.0-7.7); Basophil# 0.05 X10^3/uL; Basophil% 0.8 % (0-1); Eosinophil# 0.51 X10^3/uL; Eosinophils% 8.5 % (0-5); Hematocrit 43.6 % (37-47); Hemoglobin 14.5 g/dL (12.0-15.0); Lymphocyte # 2.45 X10^3/ul (0.83-4.51); Lymphocyte % 40.9 % (19-41); Mean Corp Hgb Conc 33.3 g/dL (32-36); Mean Corpuscular Hgb 28.8 pg (27.0-32.0); Mean Corpuscular Volume 86.5 fL (81-99); Mean Platelet Vol. 9.8 fl (6.2-12.0); Monocyte# 0.26 X10^3/uL; Monocyte% 4.3 % (0-10); NRBC Flagged by Analyzer 0 % (0-5); Neutrophil % 45.2 % (47-70); Platelet Count 220 K/mm3 (150-450); RBC Distribution Width CV 13.4 % (11.6-14.6); RBC Distribution Width SD 42.4 fl (35.1-43.9); Red Blood Count 5.04 M/mm3 (4.2-5.4)
[2024-04-23 15:08] VITALS: BP 148/69; PULSE 66; RESP 18; O2SAT 99
[2024-04-23 15:44] LABS: ALB/GLOB Ratio 0.9 RATIO (0.9-2.4); AST(SGOT) 23 U/L (15-37); Alanine Aminotransfer ALT/SGPT 20 U/L (13-56); Albumin, Serum 3.4 g/dL (3.2-5.0); Alkaline Phosphatase 91 U/L (45-117); Anion Gap 5 (5-15); BUN 12 mg/dL (7-18); BUN/Creat Ratio 18.3 RATIO (10-20); Calcium,Total 8.7 mg/dL (8.5-10.1); Chloride 112 mmol/L (98-107); Creatinine, Serum 0.66 mg/dL (0.55-1.02); EST Glomerular Filtration Rate 101 mL/min (>60); Est Glom Filt Rate - Afr Amer 122 mL/min (>60); Estimated Creatinine Clearance 102.08 ml/min; Globulin 3.7 g/dL (2.2-4.2); Glucose 88 mg/dL (74-106); Potassium 3.6 mmol/L (3.5-5.1); Protein, Total 7.1 g/dL (6.4-8.2); Sodium Level 141 mmol/L (136-145)
[2024-04-23 16:00] VITALS: BP 139/75; PULSE 61; RESP 17; O2SAT 99
--- NOTE | 2024-04-23 16:06 | EX.ED.VIS.PS ---
HPI HPI - Psych History of Present Illness Chief Complaint: Suicidal Informant: patient Narrative Narrative: Patient is a 53-year-old female with history of depression, connective tissue disorder, COPD and prior suicide attempts presenting for worsening depression and concern for suicidal ideation. Daughter was concerned that patient overdosed. Patient denies any overdose. When asked why she is concerned about overdose patient states is because she is a history of overdose. Patient denies taking anything. She notes that she has not taken her medications for the past 2 days. She notes that she recently had a medication change that was from the mood stabilizer. She does not the name of it. She denies any alcohol or drug use. She does report increased stress and thoughts of killing herself but has not attempted. She states that she did she would probably just overdose. [facility] Medical History Hepatitis Asthma Fibromyalgia Mixed connective tissue disease Depression Home Medications ?Medication ?Instructions ?Recorded ?Last Taken ?Type multivitamin 1 ea PO DAILY 04/15/19 Unknown History cannabidiol 100 mg/mL oral solution 1 cap PO DAILY PRN Pain Or Fever 05/29/20 Unknown History mecobalamin (vitamin B12) 1,000 1,000 mcg PO DAILY 05/29/20 Unknown History mcg chewable tablet diflunisal 500 mg tablet 500 mg PO BID #20 tabs 02/14/21 Unknown Rx prednisone 10 mg tablet 10 mg PO DAILY PRN Constipation 02/14/21 Unknown History buspirone 5 mg tablet 5 mg PO DAILY 04/23/24 Unknown History diazepam 5 mg tablet 5 mg PO Q6H PRN PRN anxiety 04/23/24 Unknown History Allergy/AdvReac Type Severity Reaction Status Date / Time gabapentin Allergy Itching Verified 05/19/22 13:57 hydrocodone bitartrate (From Allergy Hives Verified 05/19/22 13:57 Vicodin) morphine Allergy Itching Verified 05/19/22 13:57 naproxen AdvReac Other Verified 05/19/22 13:57 pregabalin (From Lyrica) AdvReac Other Verified 05/19/22 13:57 Social History Smoking Status: Current every day smoker tobacco type: cigarettes ROS ROS ED Constitutional Constitutional ED: Reports other Details: Generalized malaise and fatigue ; Denies chills or fever(s) Eyes Eyes: Denies change in vision Gastrointestinal Gastrointestinal: Denies abdominal pain Musculoskeletal Musculoskeletal: Reports arthralgias Integumentary Denies rash Neurologic Neurologic: Reports headache(s) Psychiatric Psychiatric: Reports anxiety, depression, suicidal ideation and suicidal thoughts Hematologic/Lymphatic Hematologic/Lymphatic: Denies easy bleeding or easy bruising EXAM Physical Exam Const Vital Signs: 04/23/24 14:09 04/23/24 14:13 04/23/24 15:08 Temperature 96.7 F L Temperature Source Temporal Pulse Rate 74 66 Respiratory Rate 22 H 18 Blood Pressure 126/88 H 148/69 H Blood Pressure Mean 100 95 Pulse Ox 100 99 Oxygen Delivery Method Room Air Room Air 04/23/24 16:00 04/23/24 17:00 Temperature Temperature Source Pulse Rate 61 81 Respiratory Rate 17 16 Blood Pressure 139/75 H 117/69 Blood Pressure Mean 96 85 Pulse Ox 99 Oxygen Delivery Method Positive well nourished and well developed General Appearance ED: well developed and NAD HEENT Reports moist mucous membranes Neck supple Resp normal respiratory effort and clear to auscultation bilaterally Cardio Rate: regular rate Rhythm: regular rhythm GI non-tender and non-distended Extremity normal to inspection Extremity Narrative: Chronic deformity of the left second toe Neuro oriented x3 Sensorium / Orientation: alert Motor Exam: muscle tone normal throughout; Negative for general weakness Psych thought process normal and cooperative Psych Narrative: Slightly sleepy but answers all questions appropriately. Insightful. Does report depression with suicidal ideation and feels that she is at the point that she might attempt suicide Memory / Cognition: memory grossly intact Insight: fair Judgement: fair Skin Lesions: no lesions Rashes: no rashes MDM MDM MDM Narrative Medical decision making narrative: Patient is evaluated for worsening depression/suicidal ideation. Medical workup including CBC, CMP, Tylenol and aspirin levels as well as alcohol and urine tox is obtained. Patient be medically cleared and evaluated by crisis for potential psychiatric placement. Patient was signed out to oncoming physician pending final disposition. Patient has been calm and cooperative in the ER. Urine tox is positive for benzodiazepines (she has a prescription for this), cannabis and amphetamines. Will add on a CPK level. Otherwise patient is medically cleared. Lab Data Attestation: I reviewed the patient's lab results. Labs: Laboratory Results - last 24 hr 04/23/24 04/23/24 14:47 16:43 WBC 6.0 RBC 5.04 Hgb 14.5 Hct 43.6 MCV 86.5 MCH 28.8 MCHC 33.3 RDW Std Deviation 42.4 RDW Coeff of Zuly 13.4 Plt Count 220 MPV 9.8 Immature Gran % (Auto) 0.300 Neut % (Auto) 45.2 L Lymph % (Auto) 40.9 [place] % (Auto) 4.3 Eos % (Auto) 8.5 H Baso % (Auto) 0.8 Absolute Neuts (auto) 2.7 Absolute Lymphs (auto) 2.45 Nucleated RBC % 0 Sodium 141 Potassium 3.6 Chloride 112 H Carbon Dioxide 24.0 Anion Gap 5 BUN 12 Creatinine 0.66 Estim Creat Clear Calc 102.08 Est GFR (MDRD) Af Amer 122 Est GFR (MDRD) Non-Af 101 BUN/Creatinine Ratio 18.3 Glucose 88 Calcium 8.7 Total Bilirubin 0.60 AST 23 ALT 20 Alkaline Phosphatase 91 Total Protein 7.1 Albumin 3.4 Globulin 3.7 Albumin/Globulin Ratio 0.9 Salicylates < 1.7 L Urine Opiates Screen NEGATIVE Urine Methadone Screen NEGATIVE Acetaminophen < 2.0 L Ur Barbiturates Screen NEGATIVE Ur Phencyclidine Scrn NEGATIVE Ur Amphetamines Screen POSITIVE H MDMA (Ecstasy) Screen NEGATIVE U Benzodiazepines Scrn POSITIVE H Urine Cocaine Screen NEGATIVE U Cannabinoids Screen POSITIVE H Ur Drug Screen Comment Ethyl Alcohol < 3.0 Rhythm Strip Rhythm Strip: Sinus Rhythm Rate: 51 Ectopy: None EKG Initial EKG: Attestation: I personally reviewed and interpreted this EKG as follows: Interpretation: Sinus Bradycardia Comments: Sinus bradycardia at a rate of 51 bpm with sinus arrhythmia Normal axis Normal intervals Normal ST segments Prior EKG tracings: available for review Prior: Changed (Patient now bradycardic, no other changes) Discharge Plan Triage Chief Complaint: Suicidal ED Provider: Reba Zavala Dx/Rx/DC Orders Clinical Impression: Depression with suicidal ideation Prescriptions: No Action multivitamin 1 EACH tablet 1 ea PO DAILY cannabidiol 100 MG/ML solution 1 cap PO DAILY PRN (Reason: Pain Or Fever) mecobalamin (vitamin B12) 1,000 MCG tablet,chewable 1,000 mcg PO DAILY prednisone 10 mg Tablet 10 mg PO DAILY PRN (Reason: Constipation) Patient Comments: i take them when my illness gets really bad diflunisal 500 mg tablet 500 mg PO BID Qty: 20 0RF buspirone 5 mg tablet 5 mg PO DAILY diazepam 5 mg tablet 5 mg PO Q6H PRN PRN (Reason: anxiety) Patient Comments: pt. states she only gets 5 pills prescribed a month. Last took on sunday Primary Care Provider: Rosanna Alfred Referrals: Rosanna Alfred DO [Primary Care Provider] - Print Language: Slovak
[2024-04-23 16:41] LABS: Acetaminophen (Tylenol) Level < 2.0 ug/mL (10.0-30.0); Alcohol, Blood (Medical)-Serum < 3.0 mg/dL; Salicylate < 1.7 mg/dL (2.8-20.0)
[2024-04-23 17:00] VITALS: BP 117/69; PULSE 81; RESP 16
[2024-04-23 17:16] LABS: Amphetamine Urine VISTA POSITIVE (<1000 ng/mL); Barbiturate Urine VISTA NEGATIVE (< 200 ng/mL); Benzodiazepine Urine VISTA POSITIVE (< 200 ng/mL); Cocaine Urine VISTA NEGATIVE (< 300 ng/mL); Ecstacy Urine VISTA NEGATIVE (< 500 ng/mL); Methadone Urine VISTA NEGATIVE (< 300 ng/mL); PCP Urine VISTA NEGATIVE (< 25 ng/mL); THC Urine VISTA POSITIVE (< 50 ng/mL); Vista UDS pH Range 5
[2024-04-23 17:53] LABS: CPK Total, Creatine Kinase 58 U/L (26-192)
--- NOTE | 2024-04-23 20:58 | ED.RN ---
Spoke to Bertha from [facility] regarding pt's PMH and medications. Informed facility will be calling crisis to discuss pt
[2024-04-23 21:53] VITALS: BP 111/55; PULSE 70; RESP 15; TEMP 36.2; O2SAT 99
--- NOTE | 2024-04-24 03:30 | ED.RN ---
Report given to [place] DRAKE, questions/concerns answered
[2024-04-24 05:56] VITALS: BP 127/81; PULSE 62; RESP 18; O2SAT 99
[2024-04-24 06:43] VITALS: BP 127/81; PULSE 62; RESP 18; TEMP 36.5; O2SAT 98
--- NOTE | 2024-04-24 11:25 | NURSING ---
CALLED [facility], ETA IS 6 MIN
== END 2024-04-24 12:09 ==
LOC: ED 14:53
PROVIDERS: Emergency Provider Emergency Medicine; PCP Family Medicine; Visit Provider Emergency Medicine
DX: F32.A Depression, unspecified (principal); J44.9 Chronic obstructive pulmonary disease, unspecified; R45.851 Suicidal ideations; F17.210 Nicotine dependence, cigarettes, uncomplicated; Z79.899 Other long term (current) drug therapy; K75.9 Inflammatory liver disease, unspecified; F41.9 Anxiety disorder, unspecified
CPT/HCPCS: 80053; 80307; 80329; 82077; 82550; 85025; 93005; 99285; A4216; G0480

== ENCOUNTER 2024-07-08 18:53 | Emergency (ER) | payer MEDICARE, MEDICAID, SELFPAY ==
[2024-07-08 18:55] VITALS: BP 137/83; PULSE 70; RESP 16; TEMP 36.1; O2SAT 98; BMI 28.5
--- NOTE | 2024-07-08 22:02 | EDS_ITS ---
HPI History of Present Illness Chief Complaint: Anxiety Informant: patient Narrative Narrative: 53-year-old female presenting with multiple concerns. Patient states that she has a undiagnosed connective tissue disorder. She is unsure of which one but states that she has symptoms of a while. She states that she has not seen her doctor for 7 years. She states that she fell 2 months ago and has had pain all down her right head neck shoulder and arm. She states that she feels a history of depression psychogenic seizures. She states that she has had 3 seizures today. She states that she is homeless and moves from family member to family member. Her daughter is homeless and has a baby and she is trying to help out. She states that she had to call the family member to call for doctors appointments and finding transportation to and from places. She was hospitalized earlier this year at psychiatric facility. She is not currently on any of her medications. Last when asked what her most pressing emergent issue is tonight she states that she wants to make sure her levels are not off. She does not necessarily know what levels she would need to check. She is concerned she may have a UTI not because of symptomology but because of fear of that health condition. [facility] Medical History Hepatitis Asthma Fibromyalgia Mixed connective tissue disease Depression Home Medications ?Medication ?Instructions ?Recorded ?Last Taken ?Type multivitamin 1 ea PO DAILY 04/15/19 Unknown History cannabidiol 100 mg/mL oral solution 1 cap PO DAILY PRN Pain Or Fever 05/29/20 Unknown History mecobalamin (vitamin B12) 1,000 1,000 mcg PO DAILY 05/29/20 Unknown History mcg chewable tablet diflunisal 500 mg tablet 500 mg PO BID #20 tabs 02/14/21 Unknown Rx prednisone 10 mg tablet 10 mg PO DAILY PRN Constipation 02/14/21 Unknown History buspirone 5 mg tablet 5 mg PO DAILY 04/23/24 Unknown History diazepam 5 mg tablet 5 mg PO Q6H PRN PRN anxiety 04/23/24 Unknown History Allergy/AdvReac Type Severity Reaction Status Date / Time gabapentin Allergy Itching Verified 07/08/24 18:54 hydrocodone bitartrate (From Allergy Hives Verified 07/08/24 18:54 Vicodin) morphine Allergy Itching Verified 07/08/24 18:54 naproxen AdvReac Other Verified 07/08/24 18:54 pregabalin (From Lyrica) AdvReac Other Verified 07/08/24 18:54 Social History Smoking Status: Light Smoker (<10/day) ROS ROS ED Constitutional Constitutional ED: Denies chills or weight loss Eyes Eyes: Denies change in vision or diplopia ENT ENT ED: Denies ear pain, rhinorrhea or sore throat Cardiovascular Cardiovascular: Denies chest pain, orthopnea, palpitations or racing heartbeat Respiratory/Chest Respiratory/Chest: Denies cough, dyspnea or orthopnea Gastrointestinal Gastrointestinal: Denies abdominal pain, diarrhea, nausea or vomiting Genitourinary Genitourinary ED: Denies dysuria, hematuria or urinary frequency Musculoskeletal Musculoskeletal: Reports arthralgias, neck pain and other Details: Right arm pain ; Denies myalgias Integumentary Denies abscess or rash Neurologic Neurologic: Reports headache(s); Denies weakness Psychiatric Psychiatric: Reports anxiety and depression; Denies suicidal ideation or suicidal thoughts Endocrine Endocrinology: Denies polydipsia, polyphagia or polyuria Allergic/Immunologic Allergic/Immunologic ED: Denies mouth swelling, tongue swelling or urticaria EXAM Physical Exam Const Vital Signs: 07/08/24 18:55 07/08/24 22:53 07/08/24 23:18 Temperature 97 F L 97.3 F L Temperature Source Temporal Pulse Rate 70 72 65 Respiratory Rate 16 16 18 Blood Pressure 137/83 H 121/70 H 120/70 Blood Pressure Mean 101 87 86 Pulse Ox 98 96 96 Oxygen Delivery Method Room Air Room Air Positive well nourished and well developed General Appearance ED: well developed HEENT Reports normocephalic, head/scalp atraumatic and moist mucous membranes Eyes PERRL and EOMs intact bilaterally Neck no lymphadenopathy, supple and no JVD Resp normal respiratory effort and clear to auscultation bilaterally Cardio regular rate, regular rhythm and no murmurs GI normal to inspection, nondistended, normoactive bowel sounds and non-tender Palpation: soft Back/Spine no CVA tenderness and normal ROM Extremity normal to inspection General Extremety ED: Negative for edema General Extremity: Negative for edema Neuro oriented x3 and CN's II-XII intact bilaterally Sensorium / Orientation: alert Motor Exam: strength 5/5 throughout Psych mental status grossly normal Psych Narrative: Intermittently tearful at times. Denies suicidal ideation Mood & Affect: depressed Skin no rashes or lesions noted and no wounds MDM MDM MDM Narrative Medical decision making narrative: Differential diagnosis includes urinary tract infection anxiety conversion disorder inflammatory arthropathies myopathies Basic blood work shows a normal white count 7.4 hemoglobin 14.2 platelet count of 218 normal electrolytes glucose 91 BUN 20 creatinine 0.69 urinalysis with no overt infection. I reassessed the patient informed her the blood results. She is much more calm and no longer tearful. I expressed that she patient needs to see primary care as well as psychiatry and we will refer her to the counseling center. She notes understanding of the plan History & Record Review Discussion w/independent historian: Patient Lab Data Attestation: I reviewed the patient's lab results. Labs: Laboratory Results - last 24 hr 07/08/24 07/08/24 21:40 22:18 WBC 7.4 RBC 4.83 Hgb 14.2 Hct 44.4 MCV 91.9 MCH 29.4 MCHC 32.0 RDW Std Deviation 47.4 H RDW Coeff of Zuly 13.9 Plt Count 218 MPV 9.7 Immature Gran % (Auto) 0.100 Neut % (Auto) 47.8 Lymph % (Auto) 38.5 [place] % (Auto) 5.4 Eos % (Auto) 7.3 H Baso % (Auto) 0.9 Absolute Neuts (auto) 3.6 Absolute Lymphs (auto) 2.86 Nucleated RBC % 0 Sodium 140 Potassium 4.0 Chloride 108 H Carbon Dioxide 26.0 Anion Gap 6 BUN 20 H Creatinine 0.69 Estim Creat Clear Calc 99.57 Est GFR (MDRD) Af Amer 116 Est GFR (MDRD) Non-Af 96 BUN/Creatinine Ratio 29.1 H Glucose 91 Calcium 9.3 Urine Color Yellow Urine Clarity Clear Urine pH 6.0 Ur Specific [place] 1.025 Urine Protein Negative Urine Glucose (UA) Normal Urine Ketones Negative Urine Occult Blood 10 H Urine Nitrite Negative Urine Bilirubin Negative Urine Urobilinogen Normal Ur Leukocyte Esterase Negative Urine RBC 0-5 SEEN Urine WBC 0-5 SEEN Ur Squamous Epith Cells 0-5 SEEN Ur Transition Epith Cell 0-5 SEEN Urine Bacteria 0 SEEN Urine Mucus RARE Urine Test Negative Discharge Plan Triage Chief Complaint: Anxiety Other Complaint: Seizure ED Provider: Yan Wellington Dx/Rx/DC Orders Clinical Impression: Anxiety about health Instructions: ED Anxiety Reaction Prescriptions: No Action multivitamin 1 EACH tablet 1 ea PO DAILY cannabidiol 100 MG/ML solution 1 cap PO DAILY PRN (Reason: Pain Or Fever) mecobalamin (vitamin B12) 1,000 MCG tablet,chewable 1,000 mcg PO DAILY prednisone 10 mg Tablet 10 mg PO DAILY PRN (Reason: Constipation) Patient Comments: i take them when my illness gets really bad diflunisal 500 mg tablet 500 mg PO BID Qty: 20 0RF buspirone 5 mg tablet 5 mg PO DAILY diazepam 5 mg tablet 5 mg PO Q6H PRN PRN (Reason: anxiety) Patient Comments: pt. states she only gets 5 pills prescribed a month. Last took on sunday Primary Care Provider: Rosanna Alfred Referrals: Counseling,Center [Group of Physicians] - As soon as possible Rosanna Alfred, [Primary Care Provider] - As soon as possible Print Language: [place] Disposition Disposition: Home, Self Care Discharge Date/Time: 07/08/24 23:19
[2024-07-08 22:16] LABS: Bacteria 0 SEEN /hpf (None Seen)
[2024-07-08 22:19] LABS: Color, Urine Yellow (Yellow); Glucose, Dipstick Normal (Normal); Ketone-Dipstick Negative (Negative); Leukocyte Esterase-Dipstick Negative /ul (Negative); Nitrite-Dipstick Negative (Negative); Occult Blood-Urine 10 /ul (Negative); Protein-Dipstick Negative (Negative); Specific Gravity, Urine 1.025 (1.002-1.030); Urine Bilirubin Dipstick Negative (Negative); Urine Clarity Clear (Clear); Urine Urobilinogen Normal (Normal)
[2024-07-08 22:27] LABS: Absolute Lymphocyte Count 2.86 X10^3/uL (0.83-4.51); Absolute Neutrophil Count 3.6 X10^3/uL (2.0-7.7); Basophil# 0.07 X10^3/uL; Basophil% 0.9 % (0-1); Eosinophil# 0.54 X10^3/uL; Eosinophils% 7.3 % (0-5); Hematocrit 44.4 % (37-47); Hemoglobin 14.2 g/dL (12.0-15.0); Lymphocyte # 2.86 X10^3/ul (0.83-4.51); Lymphocyte % 38.5 % (19-41); Mean Corpuscular Hgb 29.4 pg (27.0-32.0); Mean Corpuscular Volume 91.9 fL (81-99); Mean Platelet Vol. 9.7 fl (6.2-12.0); Monocyte% 5.4 % (0-10); NRBC Flagged by Analyzer 0 % (0-5); Neutrophil # 3.55 X10^3/uL (2.7-7.7); Neutrophil % 47.8 % (47-70); Platelet Count 218 K/mm3 (150-450); RBC Distribution Width CV 13.9 % (11.6-14.6); RBC Distribution Width SD 47.4 fl (35.1-43.9); Red Blood Count 4.83 M/mm3 (4.2-5.4); White Blood Count 7.4 K/mm3 (4.4-11.0)
[2024-07-08 22:33] LABS: Squamous Epithelial Cells - UA 0-5 SEEN /hpf (5-10); Transitional Epithelial - Ur 0-5 SEEN /hpf (0-5)
[2024-07-08 22:35] LABS: Mucous, Urine RARE /hpf (<or=2+); Red Blood Cells-Urine 0-5 SEEN /hpf (0-5); White Blood Cells 0-5 SEEN /hpf (0-5)
[2024-07-08 22:36] LABS: Internal QC Validated? YES +Cl - CLEAR BKGD; Pregnancy, Urine Negative Negative
[2024-07-08 22:40] LABS: Anion Gap 6 (5-15); BUN 20 mg/dL (7-18); BUN/Creat Ratio 29.1 RATIO (10-20); Calcium,Total 9.3 mg/dL (8.5-10.1); Chloride 108 mmol/L (98-107); Creatinine, Serum 0.69 mg/dL (0.55-1.02); EST Glomerular Filtration Rate 96 mL/min (>60); Est Glom Filt Rate - Afr Amer 116 mL/min (>60); Estimated Creatinine Clearance 99.57 ml/min; Glucose 91 mg/dL (74-106); Sodium Level 140 mmol/L (136-145)
[2024-07-08 22:53] VITALS: BP 121/70; PULSE 72; RESP 16; O2SAT 96
[2024-07-08 23:18] VITALS: BP 120/70; PULSE 65; RESP 18; TEMP 36.3; O2SAT 96
== END 2024-07-08 23:19 | disposition home or self-care (01) ==
PROVIDERS: Emergency Provider Emergency Medicine; PCP Family Medicine; Visit Provider Emergency Medicine
DX: F41.9 Anxiety disorder, unspecified (principal); R56.9 Unspecified convulsions; Z59.00 Homelessness unspecified; K75.9 Inflammatory liver disease, unspecified; Z79.899 Other long term (current) drug therapy
CPT/HCPCS: 80048; 81001; 81025; 85025; 99285

== ENCOUNTER 2024-10-25 02:04 | Emergency (ER) | payer MEDICARE, MEDICAID, SELFPAY ==
[2024-10-25 02:05] VITALS: BP 149/123; PULSE 62; RESP 18; TEMP 36.6; O2SAT 98; BMI 29.7
[2024-10-25 02:08] VITALS: BP 149/123; PULSE 64; RESP 18; TEMP 36.6; O2SAT 97
[2024-10-25 02:19] VITALS: BP 118/57
[2024-10-25] MEDS: 0.9% Normal Saline (1000mL) 1,000 ML 999 ML IV (02:42)
[2024-10-25] MEDS: Hydrocortisone Sod Succinate 100 MG/2 ML Vial IV (02:43)
[2024-10-25] MEDS: Ketorolac 30 MG/ML Syringe IV (02:43)
[2024-10-25 02:53] LABS: Mucous, Urine 0 SEEN /hpf (<or=2+); Red Blood Cells-Urine 0 SEEN /hpf (0-5)
[2024-10-25 02:54] LABS: Absolute Lymphocyte Count 1.61 X10^3/uL (0.83-4.51); Absolute Neutrophil Count 3.3 X10^3/uL (2.0-7.7); Basophil# 0.05 X10^3/uL; Basophil% 0.9 % (0-1); Color, Urine Yellow (Yellow); Eosinophil# 0.46 X10^3/uL; Eosinophils% 8.2 % (0-5); Glucose, Dipstick Normal (Normal); Hematocrit 42.4 % (37-47); Hemoglobin 14.3 g/dL (12.0-15.0); Ketone-Dipstick Negative (Negative); Leukocyte Esterase-Dipstick 25 /ul (Negative); Lymphocyte # 1.61 X10^3/ul (0.83-4.51); Lymphocyte % 28.9 % (19-41); Mean Corp Hgb Conc 33.7 g/dL (32-36); Mean Corpuscular Hgb 29.9 pg (27.0-32.0); Mean Corpuscular Volume 88.5 fL (81-99); Mean Platelet Vol. 10.1 fl (6.2-12.0); Monocyte# 0.19 X10^3/uL; Monocyte% 3.4 % (0-10); NRBC Flagged by Analyzer 0 % (0-5); Neutrophil # 3.25 X10^3/uL (2.7-7.7); Neutrophil % 58.2 % (47-70); Nitrite-Dipstick Negative (Negative); Occult Blood-Urine 25 /ul (Negative); Platelet Count 233 K/mm3 (150-450); Protein-Dipstick 30 mg/dl (Negative); RBC Distribution Width CV 13.1 % (11.6-14.6); RBC Distribution Width SD 42.5 fl (35.1-43.9); Red Blood Count 4.79 M/mm3 (4.2-5.4); Specific Gravity, Urine 1.025 (1.002-1.030); Urine Bilirubin Dipstick Negative (Negative); Urine Clarity Turbid (Clear); Urine Urobilinogen Normal (Normal); White Blood Count 5.6 K/mm3 (4.4-11.0)
--- NOTE | 2024-10-25 02:55 | RAD_ITS ---
EXAM: XR CHEST, 2 VIEWS CLINICAL INDICATION: cough TECHNIQUE: Frontal and lateral views of the chest. COMPARISON: Single view chest 05/26/2021 FINDINGS: LUNGS AND PLEURAL SPACES: Unremarkable. No consolidation or edema. No pneumothorax. No effusion. HEART: Unremarkable. Cardiac silhouette not enlarged. MEDIASTINUM: Central airways and mediastinal contour are unremarkable. BONES/JOINTS: Unremarkable. No acute fracture. SOFT TISSUES: Unremarkable. RAD/Chest PA and Lateral IMPRESSION: No radiographic evidence of acute cardiopulmonary disease. Electronically Signed: Woody Paz MD at 4:51 EST ,
[2024-10-25 03:02] LABS: Squamous Epithelial Cells - UA 0-5 SEEN /hpf (5-10); White Blood Cells 0-5 SEEN /hpf (0-5)
[2024-10-25 03:11] LABS: AST(SGOT) 17 U/L (15-37); Alanine Aminotransfer ALT/SGPT 17 U/L (13-56); Albumin, Serum 3.2 g/dL (3.2-5.0); Alkaline Phosphatase 64 U/L (45-117); Anion Gap 5 (5-15); BUN 11 mg/dL (7-18); Bilirubin, Direct 0.18 mg/dL (0.00-0.30); Calcium,Total 8.3 mg/dL (8.5-10.1); Chloride 111 mmol/L (98-107); Creatinine, Serum 0.58 mg/dL (0.55-1.02); EST Glomerular Filtration Rate 116 mL/min (>60); Est Glom Filt Rate - Afr Amer 141 mL/min (>60); Estimated Creatinine Clearance 119.36 ml/min; Globulin 3.2 g/dL (2.2-4.2); Glucose 91 mg/dL (74-106); Lipase 37 U/L (13-75); Potassium 3.6 mmol/L (3.5-5.1); Protein, Total 6.4 g/dL (6.4-8.2); Sodium Level 139 mmol/L (136-145)
[2024-10-25 03:29] LABS: Lactic Acid 0.9 mmol/L (0.4-1.9)
[2024-10-25 03:30] VITALS: BP 127/74; PULSE 56; RESP 18; TEMP 36.7; O2SAT 98
[2024-10-25 04:00] VITALS: BP 147/86; PULSE 62; RESP 18; TEMP 36.5; O2SAT 98
--- NOTE | 2024-10-25 04:11 | EX.ED.DYSGE1 ---
HPI History of Present Illness Chief Complaint: General Illness Informant: patient Narrative Narrative: Patient is a 54-year-old female with past medical history of mixed connective tissue disorder hypertension and fibromyalgia. She states she is not taking any medication other than [id number] Aleve and ibuprofen. She states she has been having bouts of generalized abdominal discomfort and diarrhea. She states this has been in place for the last 3 to 5 days. She denies any known sick contacts travel outside the country or recent antibiotic use or exposure to livestock. She states she is now started to feel general weakness and states last time she had a bad UTI that was causing her symptoms and with concern for repeat infection she presents for evaluation. [facility] Medical History (Updated 10/26/24 @ 02:[address] Elliot Gupta DO) Lupus (systemic lupus erythematosus) Hepatitis Asthma Fibromyalgia Mixed connective tissue disease Depression Home Medications ?Medication ?Instructions ?Recorded ?Last Taken ?Type dicyclomine 20 mg tablet 20 mg PO 4X/DAY PRN Abdominal 10/25/24 Unknown Rx bloating/spasm #28 tabs prednisone 20 mg tablet 40 mg (2 x 20 mg) PO DAILY 5 days 10/25/24 Unknown Rx #10 tabs Allergy/AdvReac Type Severity Reaction Status Date / Time gabapentin Allergy Itching Verified 10/25/24 02:05 hydrocodone bitartrate (From Allergy Hives Verified 10/25/24 02:05 Vicodin) morphine Allergy Itching Verified 10/25/24 02:05 naproxen AdvReac Other Verified 10/25/24 02:05 pregabalin (From Lyrica) AdvReac Other Verified 10/25/24 02:05 Social History Smoking Status: Light Smoker (<10/day) ROS [facility] ED Constitutional Constitutional ED: Denies chills or fever(s) Eyes Eyes: Denies change in vision ENT ENT ED: Reports rhinorrhea; Denies sore throat Cardiovascular Cardiovascular: Denies chest pain Respiratory/Chest Respiratory/Chest: Reports cough; Denies dyspnea Gastrointestinal Gastrointestinal: Reports abdominal pain, diarrhea and nausea; Denies vomiting Genitourinary Genitourinary ED: Reports urinary frequency; Denies dysuria Musculoskeletal Musculoskeletal: Reports myalgias Integumentary Denies rash Neurologic Neurologic: Reports weakness; Denies headache(s) Hematologic/Lymphatic Hematologic/Lymphatic: Denies easy bleeding or easy bruising EXAM Physical Exam Const Vital Signs: 10/25/24 02:19 10/25/24 02:19 10/25/24 03:30 Temperature 98.0 F Temperature Source Oral Pulse Rate 56 L Respiratory Rate 18 Respiratory Effort Normal Non-Labored Respiratory Pattern Normal Blood Pressure 118/57 L 127/74 H Blood Pressure Mean 77 91 Pulse Ox 98 Oxygen Delivery Method Room Air 10/25/24 04:00 10/25/24 04:22 Temperature 97.7 F L 97.7 F L Temperature Source Oral Pulse Rate 62 62 Respiratory Rate 18 18 Respiratory Effort Respiratory Pattern Blood Pressure 147/86 H 147/86 H Blood Pressure Mean 106 106 Pulse Ox 98 98 Oxygen Delivery Method Room Air Positive well nourished and well developed General Appearance ED: well developed; Negative for pallor HEENT HEENT Narrative: Mucous membranes are slightly dry and tacky No tongue or lip swelling no oral lesions no airway edema or compromise No secondary findings in the posterior pharynx to suggest infection Eyes PERRL and EOMs intact bilaterally General Eye ED: Negative for scleral icterus Neck supple Neck Narrative: No nuchal rigidity or meningeal signs Resp normal respiratory effort Resp Narrative: Breath sounds are diminished throughout with faint expiratory wheeze in the bilateral bases but no signs of respiratory distress Cardio regular rate and regular rhythm Rate: other Other Details: Heart is regular rate and rhythm without murmurs rubs or gallop Radial and carotid pulses are equal and symmetric GI non-distended and no masses GI Narrative: Abdomen is soft and nondistended with hyperactive bowel sounds. Patient has mild pain with palpation diffusely without voluntary guarding or rigidity. No pulsatile mass or fluid wave Auscultation: hyperactive bowel sounds Palpation: soft Back/Spine no CVA tenderness Extremity normal to inspection Neuro oriented x3, CN's II-XII intact bilaterally and no sensory deficits noted Sensorium / Orientation: alert Motor Exam: strength 5/5 throughout Psych mental status grossly normal Skin no rashes or lesions noted Skin Narrative: Skin turgor is slightly increased General Skin Exam: Negative for jaundice or pallor MDM MDM MDM Narrative Medical decision making narrative: Patient presented to the ER hypertensive but otherwise with stable vitals. History and exam is concerning for viral stomach infection such as norovirus versus rotavirus. However with overall sensation of weakness and mild cough there is also concern for COVID versus influenza versus RSV. Patient's physical exam does show changes consistent with dehydration and there is concern that this may have led to acute kidney injury or severe electrolyte abnormality. As patient also reports similar symptoms with a urinary tract infection there is concern for this so a UA was ordered. UA revealed no sign of infection. Blood work showed no signs of acute blood loss anemia LEN or clinically significant electrolyte abnormality. Chest x-ray revealed no acute lung pathology and viral swab was negative. After hydration patient reported feeling better and therefore with improvement of symptoms and vitals overall negative workup and a soft nonsurgical abdomen I do not feel there is need for further treatment in the ER and she is otherwise safe for discharge. History & Record Review Discussion w/independent historian: Patient Lab Data Attestation: I reviewed the patient's lab results. Labs: Laboratory Results - last 24 hr 10/25/24 02:35 WBC 5.6 RBC 4.79 Hgb 14.3 Hct 42.4 MCV 88.5 MCH 29.9 MCHC 33.7 RDW Std Deviation 42.5 RDW Coeff of Zuly 13.1 Plt Count 233 MPV 10.1 Immature Gran % (Auto) 0.400 Neut % (Auto) 58.2 Lymph % (Auto) 28.9 [place] % (Auto) 3.4 Eos % (Auto) 8.2 H Baso % (Auto) 0.9 Absolute Neuts (auto) 3.3 Absolute Lymphs (auto) 1.61 Nucleated RBC % 0 Sodium 139 Potassium 3.6 Chloride 111 H Carbon Dioxide 23.0 Anion Gap 5 BUN 11 Creatinine 0.58 Estim Creat Clear Calc 119.36 Est GFR (MDRD) Af Amer 141 Est GFR (MDRD) Non-Af 116 BUN/Creatinine Ratio 19.0 Glucose 91 Lactic Acid 0.9 Calcium 8.3 L Total Bilirubin 0.70 Direct Bilirubin 0.18 AST 17 ALT 17 Alkaline Phosphatase 64 C-React Prot Ext Range 6.20 H Total Protein 6.4 Albumin 3.2 Globulin 3.2 Lipase 37 Urine Color Yellow Urine Clarity Turbid Urine pH 6.0 Ur Specific [place] 1.025 Urine Protein 30 H Urine Glucose (UA) Normal Urine Ketones Negative Urine Occult Blood 25 H Urine Nitrite Negative Urine Bilirubin Negative Urine Urobilinogen Normal Ur Leukocyte Esterase 25 H Urine RBC 0 SEEN Urine WBC 0-5 SEEN Ur Squamous Epith Cells 0-5 SEEN Urine Bacteria Not Reportable Urine Mucus 0 SEEN Radiography Diagnostic Testing: Clinical Impression(s) from Imaging Studies Chest X-Ray 10/25/24 02:55 IMPRESSION: No radiographic evidence of acute cardiopulmonary disease. Electronically Signed: Woody Paz MD at 4:51 EST , Chest x-ray as interpreted by the emergency medicine physician reveals no acute infiltrate pneumothorax or pleural effusion Discharge Plan Triage Chief Complaint: General Illness ED Provider: Elliot Gupta Dx/Rx/DC Orders Clinical Impression: Generalized abdominal pain, Diarrhea, Hypertension, Mild dehydration, Mixed connective tissue disease Instructions: Abdominal Pain, ED Gastroenteritis, Viral (Adult) Prescriptions: New prednisone 20 mg tablet 40 mg PO DAILY 5 Days Qty: 10 0RF dicyclomine 20 mg tablet 20 mg PO 4X/DAY PRN (Reason: Abdominal bloating/spasm) Qty: 28 0RF Primary Care Provider: Rosanna Alfred Referrals: Rosanna Alfred DO [Primary Care Provider] - Activity Restrictions/Additional Instructions: Your workup did not reveal pneumonia or urinary tract infection your chest x-ray did not show any pneumonia. Your workup history and exam is consistent with a viral stomach infection which will last anywhere from 1 to 10 days with the average being 3 to 7 days. Take the prescribed medication as directed to reduce inflammation and help with intestinal bloating. Return to the ER should you have any further concerns Print Language: Tajik Disposition Disposition: Home, Self Care Discharge Date/Time: 10/25/24 04:24
[2024-10-25 04:22] VITALS: BP 147/86; PULSE 62; RESP 18; TEMP 36.5; O2SAT 98
== END 2024-10-25 04:24 | disposition home or self-care (01) ==
PROVIDERS: Emergency Provider Emergency Medicine; PCP Family Medicine; Visit Provider Emergency Medicine
DX: R10.84 Generalized abdominal pain (principal); R19.7 Diarrhea, unspecified; I10 Essential (primary) hypertension; E86.0 Dehydration; M35.1 Other overlap syndromes; F17.200 Nicotine dependence, unspecified, uncomplicated
CPT/HCPCS: 71046; 80048; 80076; 81001; 83605; 83690; 85025; 86140; 87631; 96361; 96374; 96375; 99285